=== PATIENT | male | born 1935 | race Caucasian/White ===

== ENCOUNTER 2019-04-01 01:08 | Inpatient (IN) | payer OTHER ==
--- NOTE | 2019-04-01 01:53 | PDOC ---
Attending Attestation - Resident Resident Name: Shan Carson - ED Attending Attestation I have performed the following: I have examined & evaluated the patient, The case was reviewed & discussed with the resident, I agree w/resident's findings & plan - HPI HPI: 04/01/19 01:51 Pt comes with SOB and pitting edema of his legs. HE is having SOB and is also nervous that he may have novel floyd virus. However no fever and no chills or flu like sx. Pt appears well. He is blind, but he is alert and oriented 04/01/19 02:13 - Physicial Exam PE: 04/01/19 01:52 Pt is afebrile VSS HEENT normal Pt has blindness of eyes. Heart RRR Lungs CTAb Abd soft NT ND +BS ext 2+ pitting edema of the lower legs. - Medical Decision Making 04/01/19 02:14 Pt will be admitted for CHF exacerbation 04/01/19 03:05 WBC is normal; CBC normal chem cardiac panel are all hemolyzed; so we repeated. 04/01/19 03:42 troponin + pt will be treated with ASA Heart Score/ECG Review - ECG Intrepretation Rhythm: Regular Rhythm - [place]: Normal - P and MO Prominent R with upright T in V1 (true posterior ND): No Delta Wave(s) Present: No WPW: No - QRS Poor R Wave Progression: No Q Wave Present: No - ST and T Early Repolarization: No Non Specific ST-T Wave changes: No Flattened T Waves: No Prolonged Q-T Interval: No - ECG Impressions Normal ECG: Yes Non-specific ST Elevation: No Ischemic Changes: No Bradycardia: No Tachycardia: Sinus Torsades stoney Pointes: No WPW: No
--- NOTE | 2019-04-01 02:06 | PDOC ---
History of Present Illness - General Chief Complaint: Shortness of Breath Stated Complaint: SHORTNESS OF BREATH,ANKLE SWELLING Time Seen by Provider: 04/01/19 01:20 History Source: Patient - History of Present Illness Initial Comments: 83M PMH legally blind, HTN, CAD s/p 2 stents, CHF BIBEMS for a week of bland taste when eating and concern regarding Covid-19. Denies f/c, cough, cp/sob, n/ v. Good appetite except bland taste when he eats. Examiner noticed edema of the legs - pt states he has had for 3 days. Pt was admitted at [facility] and discharged w/ Torsemide but has not been taking. Past History - Past Medical History Allergies/Adverse Reactions: Allergies Allergy/AdvReac Type Severity Reaction Status Date / Time No Known Allergies Allergy Verified 04/01/19 01:23 Home Medications: Ambulatory Orders Aspirin [ASA -] 81 mg PO DAILY #30 tab.chew 04/08/19 Carvedilol [Coreg -] 3.125 mg PO BID #60 tablet 04/08/19 Furosemide [Lasix -] 40 mg PO DAILY #30 tablet 04/08/19 Lisinopril [Zestril] 2.5 mg PO DAILY #30 tablet 04/08/19 Spironolactone [Aldactone -] 25 mg PO DAILY #30 tablet 04/08/19 - Psycho Social/Smoking Cessation Hx Smoking History: Unknown if ever smoked Hx Alcohol Use: No Drug/Substance Use Hx: No Review of Systems - Review of Systems Comments:: CONSTITUTIONAL: Denies F / C HEENT: Denies sore throat, rhinorrhea RESP: Denies SOB, cough CARD: Denies chest pain, palpitations GI: Denies N / V / D, abdominal pain, bloody stool, inability to tolerate PO : Denies dysuria SKIN: Denies rashes *Physical Exam - Vital Signs Last Vital Signs Temp Pulse Resp BP Pulse Ox 97.6 F 102 H 18 121/68 100 04/01/19 01:21 04/01/19 01:21 04/01/19 01:21 04/01/19 01:21 04/01/19 01:21 - Physical Exam GEN: Well appearing, NAD, comfortable HEENT: NC/AT. No facial asymmetry. Normal voice. Supple neck w/ FROM. CV: S1/S2, RRR, no m/r/g LUNG: CTAB, no wheezes, crackles, rales, rhonchi. GI: mild suprapubic ttp o/w soft, ndnt, +BS, no guarding, no rebound. MSK: 3+ pitting LE edema b/l. No obvious deformities of all extremities. SKIN: Warm, dry, no rashes appreciated. PSYCH: Normal mood and affect. NEURO: Moving all extremities ED Treatment Course - LABORATORY CBC & Chemistry Diagram: 04/05/19 06:02 04/07/19 05:28 - RADIOLOGY Radiology Studies Ordered: Category Date Time Status CHEST X-RAY PORTABLE* [RAD] Stat Radiology 04/01/19 01:40 Ordered Medical Decision Making - Medical Decision Making 04/01/19 01:53 83M BIBEMS w/ 3+ b/l pitting edema w/o SOB or crackles. DDX - CHF exacerbation; eval for ACS - CBC, CMP, Cardiac, BNP - CXR - EKG 04/01/19 02:17 notified by lab that JTs hemolyzed, reordering chems 04/01/19 04:17 labs reviewed, no baseline to compare to - slightly elevated trop; may or may not be baseline given CAD and stenting hx - elevated BNP 16698 - BUN/Cr elevated - monitor technician - admit Discharge - Discharge Information Problems reviewed: Yes Clinical Impression/Diagnosis: CHF (congestive heart failure) Qualifiers: Heart failure type: unspecified Heart failure chronicity: unspecified Qualified Code(s): I50.9 - Heart failure, unspecified Condition: Stable - Follow up/Referral - Patient Discharge Instructions - Post Discharge Activity
[2019-04-01 02:17] LABS: BASO % 0.5 % (0-2.0); EOS % 0.1 % (0-4.5); HEMATOCRIT 43.7 % (35.4-49); HEMOGLOBIN 14.2 GM/dL (11.7-16.9); LYMPH % 10.5 % (8-40); MCH 27.5 pg (25.7-33.7); MCHC 32.4 g/dl (32.0-35.9); MEAN CELL VOLUME 84.9 fl (80-96); MEAN PLT VOLUME 9.9 fl (7.5-11.1); NEUT % 80.9 % (42.8-82.8); PLATELET COUNT 156 K/MM3 (134-434); RBC 5.14 M/mm3 (4.00-5.60); RDW 15.3 % (11.9-15.9)
[2019-04-01 03:31] LABS: ALBUMIN 3.4 g/dl (3.4-5.0); BILIRUBIN,TOTAL 1.2 mg/dL (0.2-1); BLOOD UREA NITROGEN 36.3 mg/dL (7-18); TOT PROT 6.2 g/dl (6.4-8.2)
[2019-04-01] MEDS ORDERED: ASPIRIN 81 MG CHEWABLE TABLETS PO ONE (03:41)
[2019-04-01] MEDS ORDERED: ASPIRIN 81 MG CHEWABLE TABLETS ONE (03:47)
[2019-04-01] MEDS ORDERED: FUROSEMIDE 40 MG/4 ML INJECTABLE VIAL IVPUSH ONE ×3 (04:14→06:04)
--- NOTE | 2019-04-01 05:05 | HP ---
<Veronica Galeana - Last Filed: 04/01/19 06:17> CHIEF COMPLAINT: shorness of breath, lower extremity edema PCP: at [facility] HISTORY OF PRESENT ILLNESS: 83 y.o. M poor historian PMH HTN, CAD s/p 2x stent placements, CHF, legal blindness presenting for LE edema & SOB. This began 3 days ago when he noticed he was becoming short of breath w/ exertion, now progressing to SOB at rest. He endorses orthopnea using 3-4 pillows to sleep at night. Denies paroxysmal nocturnal dyspnea, denies cough, no recent URI symptoms. Ambulates with cane but not well as he is unable to see. He is unaware of most of his medical history as his takes care of his medical concerns, but usually follows up with [facility] [place]. is unreachable by phone at this time. ROS: + SOB, LE edema denies LICONA/ CP/ cough/ fevers/ chills/ abd pain/ myalgias/ parasthesias/ urinary or bowel changes ER course was notable for: (1) trop 0.09 (2) EKG sub optimal quality (3) BNP 33,000's (4) 10mg IV Lasix Recent Travel: denies PAST MEDICAL HISTORY: as per hpi PAST SURGICAL HISTORY: CABG Social History: lives w/ Smoking: denies Alcohol:denies Drugs: denies Allergies No Known Allergies Allergy (Verified 04/01/19 01:23) HOME MEDICATIONS: PHYSICAL EXAMINATION Vital Signs - 24 hr 04/01/19 04/01/19 01:21 03:52 Temperature 97.6 F Pulse Rate 102 H 86 Respiratory 18 Rate Blood Pressure 121/68 O2 Sat by Pulse 100 98 Oximetry (%) GENERAL: Awake, alert, and fully oriented, in no acute distress. HEENT: NCAT. B/l eye blindness. MMM. No JVD. LUNGS: Decr breath sounds at b/l bases R>L. No wheezes, and no crackles. No accessory muscle use. HEART: Tachycardic, normal S1 and S2 without murmur, rub or gallop. Midline chest scar noted from prior surgery. ABDOMEN: Tender to palpation RUW & epigastric region. Soft, not distended, normoactive bowel sounds, no guarding. MUSCULOSKELETAL: Normal range of motion at all joints. No bony deformities or tenderness. No CVA tenderness. EXTREMITIES: 2+ pulses, warm, well-perfused. No peripheral edema. PSYCHIATRIC: Appropriate mood and affect. SKIN: Warm, dry, normal turgor Laboratory Results - last 24 hr 04/01/19 04/01/19 04/01/19 01:58 01:58 01:58 WBC 8.0 RBC 5.14 Hgb 14.2 Hct 43.7 MCV 84.9 MCH 27.5 MCHC 32.4 RDW 15.3 Plt Count 156 MPV 9.9 Absolute Neuts (auto) 6.5 Neutrophils % 80.9 Lymphocytes % 10.5 Monocytes % 8.0 Eosinophils % 0.1 Basophils % 0.5 Nucleated RBC % 0 Sodium Cancelled Potassium Cancelled Chloride Cancelled Carbon Dioxide Cancelled Anion Gap Cancelled BUN Cancelled Creatinine Cancelled Est GFR (CKD-EPI)AfAm Cancelled Est GFR (CKD-EPI)NonAf Cancelled Random Glucose Cancelled Calcium Cancelled Total Bilirubin Cancelled AST Cancelled ALT Cancelled Alkaline Phosphatase Cancelled Creatine Kinase Cancelled Creatine Kinase Index CK-MB (CK-2) Troponin I Cancelled B-Natriuretic Peptide Cancelled Total Protein Cancelled Albumin Cancelled 04/01/19 04/01/19 02:30 02:30 WBC RBC Hgb Hct MCV MCH MCHC RDW Plt Count MPV Absolute Neuts (auto) Neutrophils % Lymphocytes % Monocytes % Eosinophils % Basophils % Nucleated RBC % Sodium 140 Potassium 5.0 Chloride 104 Carbon Dioxide 25 Anion Gap 10 BUN 36.3 H Creatinine 2.0 H Est GFR (CKD-EPI)AfAm 34.25 Est GFR (CKD-EPI)NonAf 29.56 Random Glucose 104 Calcium 9.0 Total Bilirubin 1.2 H AST 55 H ALT 47 Alkaline Phosphatase 130 H Creatine Kinase 241 Creatine Kinase Index 2.5 CK-MB (CK-2) 6.1 H Troponin I 0.09 H B-Natriuretic Peptide 46108.3 H Total Protein 6.2 L Albumin 3.4 ASSESSMENT/PLAN: 83 y.o. M poor historian PMH HTN, CAD s/p 2x stent placements, CHF, legal blindness presenting for acute CHF exacerbation. #Acute CHF exacerbation -Repeat EKG as 1st was suboptimal in quality -+ trop 0.09, trend -f/u echo -daily weights, strict Is & Os -giving 80mg IV pish lasix; s/p 10mg IV push in ED -starting 40mg IV lasix BID -monitor on tele -cardio consulted #ENRIQUE vs CKD -f/u prior labs from [facility] -BUN/ Cr 36.3/2 -f/u AM labs -renal U/S -UA, urine lytes #HTN -unsure of home meds unable to contact , patient is unsure of his pharmacy -ASA 81mg daily -starting low dose beta carmen for now, 12.5mg lopressor -monitor vitals closely -med rec #Elevated bili -endorses abd pain on palpation -f/u direct bili -f/u RUQ U/S #DVT PPX -heparin SQ TID #FEN -no standing fluids -trend lytes replete prn -sodium controlled diet #Dispo -telemetry is Jessika-- patient is unsure of her # but remembered these 2 #'s: / [phone]. Called both multiple attempts with no response. ATTENDING PHYSICIAN STATEMENT I saw and evaluated the patient. I reviewed the resident's note and discussed the case with the resident. I agree with the resident's findings and plan as documented. SUBJECTIVE: OBJECTIVE: ASSESSMENT AND PLAN: <Armando Devries - Last Filed: 04/01/19 06:49> CHIEF COMPLAINT: PCP: HISTORY OF PRESENT ILLNESS: ER course was notable for: (1) (2) (3) Recent Travel: PAST MEDICAL HISTORY: PAST SURGICAL HISTORY: Social History: Smoking: Alcohol: Drugs: Allergies No Known Allergies Allergy (Verified 04/01/19 01:23) HOME MEDICATIONS: Home Medications Medication Instructions Recorded Unobtainable 04/01/19 REVIEW OF SYSTEMS CONSTITUTIONAL: Absent: fever, chills, diaphoresis, generalized weakness, malaise, loss of appetite, weight change HEENT: Absent: rhinorrhea, nasal congestion, throat pain, throat swelling, difficulty swallowing, mouth swelling, ear pain, eye pain, visual changes CARDIOVASCULAR: Absent: chest pain, syncope, palpitations, irregular heart rate, lightheadedness , peripheral edema RESPIRATORY: Absent: cough, shortness of breath, dyspnea with exertion, orthopnea, wheezing, stridor, hemoptysis GASTROINTESTINAL: Absent: abdominal pain, abdominal distension, nausea, vomiting, diarrhea, constipation, melena, hematochezia GENITOURINARY: Absent: dysuria, frequency, urgency, hesitancy, hematuria, flank pain, genital pain MUSCULOSKELETAL: Absent: myalgia, arthralgia, joint swelling, back pain, neck pain SKIN: Absent: rash, itching, pallor HEMATOLOGIC/IMMUNOLOGIC: Absent: easy bleeding, easy bruising, lymphadenopathy, frequent infections ENDOCRINE: Absent: unexplained weight gain, unexplained weight loss, heat intolerance, cold intolerance NEUROLOGIC: Absent: headache, focal weakness or paresthesias, dizziness, unsteady gait, seizure, mental status changes, bladder or bowel incontinence PSYCHIATRIC: Absent: anxiety, depression, suicidal or homicidal ideation, hallucinations. PHYSICAL EXAMINATION Vital Signs - 24 hr 04/01/19 04/01/19 04/01/19 01:21 03:52 05:28 Temperature 97.6 F Pulse Rate 102 H 86 Pulse Rate [ 98 H Left] Respiratory 18 16 Rate Blood Pressure 121/68 Blood Pressure 140/94 [Left Arm] O2 Sat by Pulse 100 98 100 Oximetry (%) GENERAL: Awake, alert, and fully oriented, in no acute distress. HEAD: Normal with no signs of trauma. EYES: Pupils equal, round and reactive to light, extraocular movements intact, sclera anicteric, conjunctiva clear. No lid lag. EARS, NOSE, THROAT: Ears normal, nares patent, oropharynx clear without exudates. Moist mucous membranes. NECK: Normal range of motion, supple without lymphadenopathy, JVD, or masses. LUNGS: Breath sounds equal, clear to auscultation bilaterally. No wheezes, and no crackles. No accessory muscle use. HEART: Regular rate and rhythm, normal S1 and S2 without murmur, rub or gallop. ABDOMEN: Soft, nontender, not distended, normoactive bowel sounds, no guarding, no rebound, no masses. No hepatomegaly or splenomegaly. MUSCULOSKELETAL: Normal range of motion at all joints. No bony deformities or tenderness. No CVA tenderness. UPPER EXTREMITIES: 2+ pulses, warm, well-perfused. No cyanosis. No clubbing. No peripheral edema. LOWER EXTREMITIES: 2+ pulses, warm, well-perfused. No calf tenderness. No peripheral edema. NEUROLOGICAL: Cranial nerves II-XII intact. Normal speech. Normal gait. PSYCHIATRIC: Cooperative. Good eye contact. Appropriate mood and affect. SKIN: Warm, dry, normal turgor, no rashes or lesions noted, normal capillary refill. Laboratory Results - last 24 hr 04/01/19 04/01/19 04/01/19 01:58 01:58 01:58 WBC 8.0 RBC 5.14 Hgb 14.2 Hct 43.7 MCV 84.9 MCH 27.5 MCHC 32.4 RDW 15.3 Plt Count 156 MPV 9.9 Absolute Neuts (auto) 6.5 Neutrophils % 80.9 Lymphocytes % 10.5 Monocytes % 8.0 Eosinophils % 0.1 Basophils % 0.5 Nucleated RBC % 0 Sodium Cancelled Potassium Cancelled Chloride Cancelled Carbon Dioxide Cancelled Anion Gap Cancelled BUN Cancelled Creatinine Cancelled Est GFR (CKD-EPI)AfAm Cancelled Est GFR (CKD-EPI)NonAf Cancelled Random Glucose Cancelled Calcium Cancelled Total Bilirubin Cancelled AST Cancelled ALT Cancelled Alkaline Phosphatase Cancelled Creatine Kinase Cancelled Creatine Kinase Index CK-MB (CK-2) Troponin I Cancelled B-Natriuretic Peptide Cancelled Total Protein Cancelled Albumin Cancelled 04/01/19 04/01/19 02:30 02:30 WBC RBC Hgb Hct MCV MCH MCHC RDW Plt Count MPV Absolute Neuts (auto) Neutrophils % Lymphocytes % Monocytes % Eosinophils % Basophils % Nucleated RBC % Sodium 140 Potassium 5.0 Chloride 104 Carbon Dioxide 25 Anion Gap 10 BUN 36.3 H Creatinine 2.0 H Est GFR (CKD-EPI)AfAm 34.25 Est GFR (CKD-EPI)NonAf 29.56 Random Glucose 104 Calcium 9.0 Total Bilirubin 1.2 H AST 55 H ALT 47 Alkaline Phosphatase 130 H Creatine Kinase 241 Creatine Kinase Index 2.5 CK-MB (CK-2) 6.1 H Troponin I 0.09 H B-Natriuretic Peptide 19997.3 H Total Protein 6.2 L Albumin 3.4 ASSESSMENT/PLAN: Visit type - Emergency Visit Emergency Visit: Yes ED Registration Date: 04/01/19 Care time: The patient presented to the Emergency Department on the above date and was hospitalized for further evaluation of their emergent condition. - New Patient This patient is new to me today: Yes Date on this admission: 04/01/19 - Critical Care Critical Care patient: No ATTENDING PHYSICIAN STATEMENT I saw and evaluated the patient. I reviewed the resident's note and discussed the case with the resident. I agree with the resident's findings and plan as documented. SUBJECTIVE: 83 years oldf MalePMH HTN, CAD s/p 2x stent placements, CHF, legal blindness presented to ED with worsening of b/ LE swelling and shortness of breath. According to patient hsi symptoms started 3 days ago and progressively getting worse. he is a poor historian and not happy being here as he said he suppose to go to hospital in [facility]. He is agitated and wants to go to other hospital and wants to talk to his . He denies chest pain, nausea ,vomiting,fever,dizziness, LOC. OBJECTIVE: Last Vital Signs Temp Pulse Resp BP Pulse Ox 97.6 F 98 H 16 140/94 100 04/01/19 01:21 04/01/19 05:28 04/01/19 05:28 04/01/19 05:28 04/01/19 05:28 CXR noted for R pleural effusion elevated bun/cr, elevated BNP GENERAL: Normal built, NAD Head : NC/ AT eyes : b/l eye blindness LUNGS:decreased breath sounds Right lower lung HEART:RRR, normal S1 and S2 without murmur, rub or gallop. chest wall scar noted ABDOMEN: Soft, mild tender on RUQ an depihastric region not distended, EXTREMITIES: b/l Lower extremities edema pitting 3+ NEUROLOGICAL: A&o x3, No focal neuralgic deficit SKIN: Warm, dry, normal turgor. Acute CHF exacerbation ( Unknown EF) ENRIQUE vs CKD- unknown baseline ' HTN CAD s/p stents Hx of ?CABG Elevated troponin due to CHF vs ENRIQUE r/o ACS ASSESSMENT AND PLAN: Admit to tele serial cardiac enzymes, EKG fluid restriction, daily weights IV lasix 40mg BID ECHO intake out put Confirm home medications start low dose of betablocker urine lytes, renal and RUQ US due to elevated bili and mild RUQ pain c/w aspirin 81 SVT ppx - heparin sq get cardiac work up records from [facility] Discussed with resident staff in conference.
[2019-04-01] MEDS ORDERED: FUROSEMIDE 40 MG/4 ML INJECTABLE VIAL ONE (05:08)
[2019-04-01] MEDS: HEPARIN NA (PORCINE) 5,000 UNITS/ML 1ML VIAL SQ SCH ×3 (05:20→21:49)
[2019-04-01] MEDS ORDERED: HEPARIN NA (PORCINE) 5,000 UNITS/ML 1ML VIAL ONE (05:23)
[2019-04-01 08:04] LABS: BASO % 0.2 % (0-2.0); EOS % 0.2 % (0-4.5); HEMATOCRIT 42.3 % (35.4-49); HEMOGLOBIN 13.8 GM/dL (11.7-16.9); LYMPH % 15.5 % (8-40); MCH 27.6 pg (25.7-33.7); MCHC 32.6 g/dl (32.0-35.9); MEAN CELL VOLUME 84.8 fl (80-96); MEAN PLT VOLUME 9.5 fl (7.5-11.1); MONO % 7.5 % (3.8-10.2); NEUT % 76.6 % (42.8-82.8); PLATELET COUNT 134 K/MM3 (134-434); RBC 4.99 M/mm3 (4.00-5.60); RDW 15.4 % (11.9-15.9); WHITE BLOOD COUNT 6.7 K/mm3 (4.0-10.0)
[2019-04-01 08:14] LABS: POTASSIUM 4.7 mmol/L (3.5-5.1)
[2019-04-01 08:21] LABS: ALBUMIN 3.4 g/dl (3.4-5.0); BILIRUBIN,DIRECT 0.5 mg/dL (0.0-0.2); BILIRUBIN,TOTAL 1.1 mg/dL (0.2-1); BLOOD UREA NITROGEN 35.7 mg/dL (7-18); CALCIUM 9.5 mg/dL (8.5-10.1); TOT PROT 6.2 g/dl (6.4-8.2)
--- NOTE | 2019-04-01 09:22 | CON.CARD ---
Consult - History of Present Illness Chief Complaint: SOB History of Present Illness: 83YOM , poor historian, with apparent CABG?, PCIs (pt states had "8 of them, last one 8 months ago"), HTN,HLD,CHF?,CKD c/o increasing SOB, Orthopnea, arm and legs pain. 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 States in the past had CPs prior to stents but not having any now; In ER found to be in CHF, Cr 2, K 5, BNP>97243, given IV lasix and today feels much better - History Source History Provided By: Patient, Medical Record - Past Medical History Cardio/Vascular: Yes: CAD, CHF, HTN, Hyperlipdemia Renal/: Yes: Renal Inusuff - Alcohol/Substance Use Hx Alcohol Use: No - Smoking History Smoking history: Unknown if ever smoked Home Medications - Allergies Allergies/Adverse Reactions: Allergies Allergy/AdvReac Type Severity Reaction Status Date / Time No Known Allergies Allergy Verified 04/01/19 01:23 - Home Medications Home Medications: Ambulatory Orders Unobtainable 04/01/19 Review of Systems Findings/Remarks: All other systems reviewed negative, except in HPI; +blindness Vital Signs: Vital Signs Temperature 97.6 F 04/01/19 01:21 Pulse Rate 94 H 04/01/19 07:15 Respiratory Rate 16 04/01/19 07:15 Blood Pressure 137/96 04/01/19 07:15 O2 Sat by Pulse Oximetry (%) 100 04/01/19 07:15 Constitutional: Yes: No Distress, Cachectic Eyes: No: Sclera Icterus Neck: Yes: Other (No JVP on sitting) Respiratory: Yes: Other (No rales, scatter rhonchi, mildly decreased RLL) Gastrointestinal: Yes: Soft Cardiovascular: Yes: Regular Rate and Rhythm, Other (No M/). No: Gallop, Rub JVD: No Carotid Bruit: No Heart Sounds: Yes: S1, S2 Edema: Yes (2+ LE) - Other Data Labs, Other Data: CBC, BMP 04/01/19 07:35 04/01/19 07:35 Troponin, BNP 04/01/19 04/01/19 04/01/19 01:58 01:58 02:30 Troponin I Cancelled 0.09 H B-Natriuretic Peptide Cancelled 04/01/19 04/01/19 02:30 07:35 Troponin I 0.10 H B-Natriuretic Peptide 93273.3 H Troponin, BNP 04/01/19 04/01/19 04/01/19 01:58 01:58 02:30 Troponin I Cancelled 0.09 H B-Natriuretic Peptide Cancelled 04/01/19 04/01/19 02:30 07:35 Troponin I 0.10 H B-Natriuretic Peptide 81633.3 H Imaging - Results Chest X-ray: Report Reviewed Assessment/Plan -CHF exacerbation -CAD, s/p ?CABG, s/p PCI: -HTN -HLD -CKD -Legally blind Plan: -Get full Hx/meds list from family when available -Echo -Trend Troponin -Cot Lasix -Add: Plavix 75 mg/d (unril pt's home meds available, then resume home's antiplatelet if any) -Add atorvastatin 40mg/d
--- NOTE | 2019-04-01 09:48 | EKG ---
Test Reason : Blood Pressure : / mmHG Vent. Rate : 095 BPM Atrial Rate : 095 BPM P-R Int : 184 ms QRS Dur : 122 ms QT Int : 386 ms P-R-T Axes : 079 -35 126 degrees QTc Int : 485 ms NORMAL SINUS RHYTHM POSSIBLE LEFT ATRIAL ENLARGEMENT NON-SPECIFIC INTRA-VENTRICULAR CONDUCTION DELAY LEFTWARD AXIS Consider SEPTAL INFARCT (CITED ON OR BEFORE 01-APR-2019) ABNORMAL ECG WHEN COMPARED WITH ECG OF 01-APR-2019 01:50, NORMAL SINUS RHYTHM 0CC PREMATURE VENTRICULAR COMPLEXES NO SIGNIFICANT CHANGE FROM PREVIOUS EKG Confirmed by Candace Shelby ([id number]) on 04/01/2019 9:48:28 AM Referred By: JYOTI LANDRY Confirmed By:Candace Shelby
--- NOTE | 2019-04-01 09:57 | EKG ---
Test Reason : Blood Pressure : / mmHG Vent. Rate : 103 BPM Atrial Rate : 103 BPM P-R Int : 192 ms QRS Dur : 084 ms QT Int : 370 ms P-R-T Axes : 104 -14 -63 degrees QTc Int : 484 ms POOR DATA QUALITY, INTERPRETATION MAY BE ADVERSELY AFFECTED SINUS TACHYCARDIA ANTEROSEPTAL INFARCT , AGE UNDETERMINED NON-SPECIFIC INTRA-VENTRICULAR CONDUCTION DELAY ABNORMAL ECG WHEN COMPARED WITH ECG OF 09-JAN-2005 08:19, VENT. RATE HAS INCREASED BY 38 BPM QUESTIONABLE CHANGE IN QRS DURATION ANTEROSEPTAL INFARCT IS NOW PRESENT Confirmed by Candace Shelby ([id number]) on 04/01/2019 9:56:52 AM Referred By: Confirmed By:Candace Shelby
[2019-04-01] MEDS ORDERED: CLOPIDOGREL BISULFATE 75 MG TABLET (FP) ONE (10:57)
[2019-04-01] MEDS: CLOPIDOGREL BISULFATE 75 MG TABLET (FP) PO SCH (11:06)
[2019-04-01] MEDS: metoPROLOL SUCCINATE 25 MG TAB.SR.24H (FP) PO SCH (11:06)
[2019-04-01] MEDS: ASPIRIN 81 MG CHEWABLE TABLETS PO SCH (11:07)
[2019-04-01] MEDS: FUROSEMIDE 40 MG/4 ML INJECTABLE VIAL IVPUSH SCH (13:29)
--- NOTE | 2019-04-01 14:16 | PN ---
Physical Exam: SUBJECTIVE: Patient seen and examined. He has no complaints. He says he feels fatigued and SOB when ambulating. OBJECTIVE: Vital Signs Period Temp Pulse Resp BP Sys/Barber Pulse Ox Last 24 Hr 97.6 F-97.9 F 86-102 16-22 121-140/68-96 98-100 GENERAL: The patient is awake, alert, and fully oriented, in no acute distress. LUNGS: Breath sounds equal, clear to auscultation bilaterally, no wheezes, no crackles, no accessory muscle use. HEART: Regular rate and rhythm, S1, S2 without murmur, rub or gallop. ABDOMEN: Soft, nontender, nondistended, normoactive bowel sounds, no guarding, no rebound, no hepatosplenomegaly, no masses. EXTREMITIES: 2+ pulses, warm, well-perfused, 3+ edema. Laboratory Results - last 24 hr 04/01/19 04/01/19 04/01/19 01:58 01:58 01:58 WBC 8.0 RBC 5.14 Hgb 14.2 Hct 43.7 MCV 84.9 MCH 27.5 MCHC 32.4 RDW 15.3 Plt Count 156 MPV 9.9 Absolute Neuts (auto) 6.5 Neutrophils % 80.9 Lymphocytes % 10.5 Monocytes % 8.0 Eosinophils % 0.1 Basophils % 0.5 Nucleated RBC % 0 Sodium Cancelled Potassium Cancelled Chloride Cancelled Carbon Dioxide Cancelled Anion Gap Cancelled BUN Cancelled Creatinine Cancelled Est GFR (CKD-EPI)AfAm Cancelled Est GFR (CKD-EPI)NonAf Cancelled Random Glucose Cancelled Calcium Cancelled Total Bilirubin Cancelled Direct Bilirubin AST Cancelled ALT Cancelled Alkaline Phosphatase Cancelled Creatine Kinase Cancelled Creatine Kinase Index CK-MB (CK-2) Troponin I Cancelled B-Natriuretic Peptide Cancelled Total Protein Cancelled Albumin Cancelled Triglycerides Cholesterol Total LDL Cholesterol HDL Cholesterol 04/01/19 04/01/19 04/01/19 02:30 02:30 07:35 WBC 6.7 RBC 4.99 Hgb 13.8 Hct 42.3 MCV 84.8 MCH 27.6 MCHC 32.6 RDW 15.4 Plt Count 134 MPV 9.5 Absolute Neuts (auto) 5.2 Neutrophils % 76.6 Lymphocytes % 15.5 D Monocytes % 7.5 Eosinophils % 0.2 D Basophils % 0.2 Nucleated RBC % 0 Sodium 140 Potassium 5.0 Chloride 104 Carbon Dioxide 25 Anion Gap 10 BUN 36.3 H Creatinine 2.0 H Est GFR (CKD-EPI)AfAm 34.25 Est GFR (CKD-EPI)NonAf 29.56 Random Glucose 104 Calcium 9.0 Total Bilirubin 1.2 H Direct Bilirubin AST 55 H ALT 47 Alkaline Phosphatase 130 H Creatine Kinase 241 Creatine Kinase Index 2.5 CK-MB (CK-2) 6.1 H Troponin I 0.09 H B-Natriuretic Peptide 65578.3 H Total Protein 6.2 L Albumin 3.4 Triglycerides Cholesterol Total LDL Cholesterol HDL Cholesterol 04/01/19 04/01/19 07:35 07:35 WBC RBC Hgb Hct MCV MCH MCHC RDW Plt Count MPV Absolute Neuts (auto) Neutrophils % Lymphocytes % Monocytes % Eosinophils % Basophils % Nucleated RBC % Sodium 137 139 Potassium 5.0 4.7 Chloride 103 102 Carbon Dioxide 28 27 Anion Gap 6 L 10 BUN 35.7 H Creatinine 2.0 H Est GFR (CKD-EPI)AfAm 34.25 Est GFR (CKD-EPI)NonAf 29.56 Random Glucose 95 Calcium 9.5 Total Bilirubin 1.1 H Direct Bilirubin 0.5 H AST 53 H ALT 46 Alkaline Phosphatase 129 H Creatine Kinase Creatine Kinase Index CK-MB (CK-2) Troponin I 0.10 H B-Natriuretic Peptide Total Protein 6.2 L Albumin 3.4 Triglycerides 84 Cholesterol 185 Total LDL Cholesterol 111 H HDL Cholesterol 53 Active Medications Generic Name Dose Route Start Last Admin Trade Name Freq PRN Reason Stop Dose Admin Aspirin 81 mg 04/01/19 10:00 04/01/19 11:07 Asa - PO 81 mg DAILY JANETTE Administration Atorvastatin Calcium 40 mg 04/01/19 22:00 Lipitor - PO HS JANETTE Clopidogrel Bisulfate 75 mg 04/01/19 10:00 04/01/19 11:06 Plavix - PO 75 mg DAILY JANETTE Administration Furosemide 40 mg 04/01/19 14:00 04/01/19 13:29 Lasix Injection - IVPUSH 40 mg BIDLASIX JANETTE Administration Heparin Sodium (Porcine) 5,000 unit 04/01/19 06:00 04/01/19 13:28 Heparin - SQ 5,000 unit TID JANETTE Administration Metoprolol Succinate 12.5 mg 04/01/19 10:00 04/01/19 11:06 Toprol Xl - PO 12.5 mg DAILY JANETTE Administration ASSESSMENT/PLAN: This is an 83 year old man with a history of HTN, CAD with stents, CHF, legal blindness who presented to the ED with leg swelling and SOB. 1. Acute on chronic heart failure - Unclear if diastolic or systolic - Continue Lasix IV - Daily weight, I&O - Echocardiogram 2. Demand ischemia 3. 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 HTN - Continue Toprol XL, Lasix 5. CAD, history of stents - Continue aspirin, Plavix, Toprol XL, Lipitor 6. Elevated AST, direct bili, alk phos - Cholelithiasis, mild diffuse gallbladder wall thickening seen on US - Consider HIDA scan Visit type - Emergency Visit Emergency Visit: Yes ED Registration Date: 04/01/19 Care time: The patient presented to the Emergency Department on the above date and was hospitalized for further evaluation of their emergent condition. - New Patient This patient is new to me today: Yes Date on this admission: 04/01/19 - Critical Care Critical Care patient: No - Discharge Referral Referred to [facility] Med P.C.: No
[2019-04-01] MEDS: ATORVASTATIN CA 40 MG TABLET (FP) PO SCH (21:49)
[2019-04-02] MEDS: HEPARIN NA (PORCINE) 5,000 UNITS/ML 1ML VIAL SQ SCH ×4 (05:49→23:14)
[2019-04-02] MEDS: FUROSEMIDE 40 MG/4 ML INJECTABLE VIAL IVPUSH SCH ×2 (05:50→15:23)
[2019-04-02 07:14] LABS: BLOOD UREA NITROGEN 37.6 mg/dL (7-18); CALCIUM 8.4 mg/dL (8.5-10.1); MAGNESIUM 2.1 mg/dL (1.8-2.4); POTASSIUM 3.5 mmol/L (3.5-5.1)
[2019-04-02] MEDS: CLOPIDOGREL BISULFATE 75 MG TABLET (FP) PO SCH (10:47)
[2019-04-02] MEDS: ASPIRIN 81 MG CHEWABLE TABLETS PO SCH (10:47)
[2019-04-02] MEDS: metoPROLOL SUCCINATE 25 MG TAB.SR.24H (FP) PO SCH (10:47)
--- NOTE | 2019-04-02 11:53 | ECHO ---
Name: RADHA DURAN Exam:Adult Echocardiogram Study Date: 04/02/2019 10:02 AM Age: 83 yrs Reason For Study: chf Height: 65 in Weight: 140 lb BSA: 1.7 m2 MMode/2D Measurements & Calculations IVSd: 1.0 cm Ao root diam: 3.5 cm LVIDd: 6.9 cm LA dimension: 4.4 cm LVIDs: 6.0 cm ACS: 1.7 cm LVPWd: 0.78 cm LVPWs: 0.70 cm EDV(Teich): 250.0 ml ESV(Teich): 182.5 ml Doppler Measurements & Calculations MV E max aga: 88.1 cm/sec Ao V2 max: 104.2 cm/sec MV A max aga: 24.2 cm/sec Ao max P.3 mmHg MV E/A: 3.6 Ao V2 mean: 79.9 cm/sec Ao mean P.8 mmHg Ao V2 VTI: 16.9 cm AI P1/2t: 442.2 msec AI max aga: 306.2 cm/sec MR max aga: 289.3 cm/sec AI max P.5 mmHg MR max P.6 mmHg AI dec slope: 202.8 cm/sec2 TR max aga: 283.0 cm/sec PI end-d aga: 104.5 cm/sec TR max P.1 mmHg Med Peak E' Aga: 3.0 cm/sec Med E/e': 29.8 Lat Peak E' Aga: 3.6 cm/sec Lat E/e': 24.3 Procedure A complete two-dimensional transthoracic echocardiogram was performed (2D, M-mode, Doppler and color flow Doppler). Left Ventricle The left ventricle is severely dilated. Left ventricular systolic function is severely reduced. Eject ion Fraction = 25%. The transmitral spectral Doppler flow pattern is suggestive of impaired LV relaxation . There is severe global hypokinesis of the left ventricle. Right Ventricle The right ventricle is mildly dilated. The right ventricular systolic function is mildly reduced. Atria The left atrium is mildly dilated. The right atrium is mildly dilated. Mitral Valve There is moderate mitral annular calcification. There is moderate mitral valve thickening. There is m ild to moderate mitral regurgitation. Tricuspid Valve The tricuspid valve is normal in structure and function. There is mild tricuspid regurgitation. Right ventricular systolic pressure is elevated at 42 mmhg. Assuming the RA pressure is 10 mmHg. Aortic Valve There is moderate to severe aortic valve thickening. No hemodynamically significant valvular aortic s tenosis. Great Vessels The aortic root is normal size. Pericardium/Pleura There is no pericardial effusion. There is no pleural effusion. Interpretation Summary The left ventricle is severely dilated. There is severe global hypokinesis of the left ventricle. Left ventricular systolic function is severely reduced. Ejection Fraction = 25%. The right ventricle is mildly dilated. The right ventricular systolic function is mildly reduced. The left atrium is mildly dilated. The right atrium is mildly dilated. There is moderate mitral annular calcification. There is moderate mitral valve thickening. There is mild to moderate mitral regurgitation. There is mild tricuspid regurgitation. Right ventricular systolic pressure is elevated at 42 mmhg. Assuming the RA pressure is 10 mmHg There is moderate to severe aortic valve thickening. MD Carlton Mchugh 04/02/2019 11:53 AM
--- NOTE | 2019-04-02 13:31 | PN ---
Physical Exam: SUBJECTIVE: Patient seen and examined at the bedside. Patient states that he feels well but is nervous that he forgot his 's phone number. Stated that he has some dyspnea on exertion. Endorsed good appetite. Otherwise did not have acute complaints of cp, abd pain, n/v/c/d, fever, chills, weakness, dizziness, lightheadedness, headaches, numbness/tingling. OBJECTIVE: Vital Signs Period Temp Pulse Resp BP Sys/Barber Pulse Ox Last 24 Hr 97.5 F-98.7 F 84-96 18-22 92-136/62-91 94-100 GENERAL: The patient is awake, alert, and fully oriented, in no acute distress. EYES: Very poorly reactive pupils. White-out of lenses. ENT: Oropharynx clear without exudates, moist mucous membranes. LUNGS: Breath sounds equal, mild bibasilar crackles heard. No wheezes auscultated. HEART: Regular rate and rhythm, S1, S2 without murmur, rub. ABDOMEN: Soft, nontender, nondistended, normoactive bowel sounds, no guarding, no rebound, no masses. Liz's negative. EXTREMITIES: 1+ pulses, warm, well-perfused, 3+ pitting edema up to the knees. PSYCH: Normal mood, normal affect. SKIN: Warm, dry, normal turgor. Laboratory Results - last 24 hr 04/02/19 04/02/19 04/02/19 05:27 05:30 05:30 Sodium 137 Potassium 3.5 Chloride 100 Carbon Dioxide 28 Anion Gap 9 BUN 37.6 H Creatinine 2.0 H Est GFR (CKD-EPI)AfAm 34.25 Est GFR (CKD-EPI)NonAf 29.56 Random Glucose 84 Calcium 8.4 L Magnesium 2.1 Ur Random Creatinine 38.0 Ur Random Sodium 96 Ur Random Potassium 35.0 Ur Random Chloride 128 Active Medications Generic Name Dose Route Start Last Admin Trade Name Freq PRN Reason Stop Dose Admin Aspirin 81 mg 04/01/19 10:00 04/02/19 10:47 Asa - PO 81 mg DAILY JANETTE Administration Atorvastatin Calcium 40 mg 04/01/19 22:00 04/01/19 21:49 Lipitor - PO 40 mg HS JANETTE Administration Clopidogrel Bisulfate 75 mg 04/01/19 10:00 04/02/19 10:47 Plavix - PO 75 mg DAILY JANETTE Administration Furosemide 40 mg 04/01/19 14:00 04/02/19 05:50 Lasix Injection - IVPUSH 40 mg BIDLASIX JANETTE Administration Heparin Sodium (Porcine) 5,000 unit 04/01/19 06:00 04/02/19 06:16 Heparin - SQ 5,000 unit TID JANETTE Administration Metoprolol Succinate 12.5 mg 04/01/19 10:00 04/02/19 10:47 Toprol Xl - PO 12.5 mg DAILY JANETTE Administration ECHO: The left ventricle is severely dilated. There is severe global hypokinesis of the left ventricle. Left ventricular systolic function is severely reduced. Ejection Fraction = 25%. The right ventricle is mildly dilated. The right ventricular systolic function is mildly reduced. The left atrium is mildly dilated. The right atrium is mildly dilated. There is moderate mitral annular calcification. There is moderate mitral valve thickening. There is mild to moderate mitral regurgitation. There is mild tricuspid regurgitation. Right ventricular systolic pressure is elevated at 42 mmhg. Assuming the RA pressure is 10 mmHg There is moderate to severe aortic valve thickening. ASSESSMENT/PLAN: Dallas Toscano is a 83 year old male with a past medical history of PMH HTN, CAD s /p 2x stent placements, CHF, legal blindness admitted for acute CHF decompensation. Acute CHF decompensation - echo as above - daily weights, strict Is & Os - weights noting decrease of weight in 1 day - Lasix 40mg IV BID - cardiac monitoring - cardio consulted, recs appreciated, adding Plavix and atorvastatin, trend troponin ENRIQUE vs CKD - improving - attempting to obtain records from previous institution - renal U/S with no noted hydronephrosis. Noted multiple bilateral cortical cysts, will need outpatient f/u - obtain Urine CRE and urea as patient on Lasix HTN - unsure of home meds unable to contact , patient is unsure of his pharmacy - ASA 81mg daily - starting low dose beta carmen for now, 12.5mg lopressor Elevated bili - does not have abd pain - direct bili, elevated - RUQ U/S noting cholelithiasis, gallbladder wall thickening and pericholecystic fluid - HIDA to assess for gallbladder pathology, patient is currently asymptomatic DVT PPX - heparin 5000 units subq tid FEN - no standing fluids - continue to monitor electrolytes and replete as necessary - sodium controlled diet, NPO after midnight for HIDA Dispo - continue to monitor on telemetry Visit type - Emergency Visit Emergency Visit: Yes ED Registration Date: 04/01/19 Care time: The patient presented to the Emergency Department on the above date and was hospitalized for further evaluation of their emergent condition. - New Patient This patient is new to me today: Yes Date on this admission: 04/02/19 - Critical Care Critical Care patient: No
--- NOTE | 2019-04-02 15:46 | PN ---
Teaching Attending Note Name of Resident: Gabino Hernandez ATTENDING PHYSICIAN STATEMENT I saw and evaluated the patient. I reviewed the resident's note and discussed the case with the resident. I agree with the resident's findings and plan as documented. SUBJECTIVE: Patient feels SOB with exertion. OBJECTIVE: Vital Signs Period Temp Pulse Resp BP Sys/Barber Pulse Ox Last 24 Hr 97.5 F-98.7 F 84-96 18-21 92-136/62-91 94-100 GENERAL: The patient is awake, alert, and fully oriented, in no acute distress. LUNGS: Breath sounds equal, clear to auscultation bilaterally, no wheezes, no crackles, no accessory muscle use. HEART: Regular rate and rhythm, S1, S2 without murmur, rub or gallop. ABDOMEN: Soft, nontender, nondistended, normoactive bowel sounds, no guarding, no rebound, no hepatosplenomegaly, no masses. EXTREMITIES: 2+ pulses, warm, well-perfused, 3+ edema. Laboratory Results - last 24 hr 04/02/19 04/02/19 04/02/19 05:27 05:30 05:30 Sodium 137 Potassium 3.5 Chloride 100 Carbon Dioxide 28 Anion Gap 9 BUN 37.6 H Creatinine 2.0 H Est GFR (CKD-EPI)AfAm 34.25 Est GFR (CKD-EPI)NonAf 29.56 Random Glucose 84 Calcium 8.4 L Magnesium 2.1 Ur Random Creatinine 38.0 Ur Random Sodium 96 Ur Random Potassium 35.0 Ur Random Chloride 128 Current Medications Generic Name Dose Route Start Last Admin Trade Name Freq PRN Reason Stop Dose Admin Aspirin 81 mg 04/01/19 10:00 04/02/19 10:47 Asa - PO 81 mg DAILY JANETTE Administration Atorvastatin Calcium 40 mg 04/01/19 22:00 04/01/19 21:49 Lipitor - PO 40 mg HS JANETTE Administration Clopidogrel Bisulfate 75 mg 04/01/19 10:00 04/02/19 10:47 Plavix - PO 75 mg DAILY JANETTE Administration Furosemide 40 mg 04/01/19 14:00 04/02/19 15:23 Lasix Injection - IVPUSH 40 mg BIDLASIX JANETTE Administration Heparin Sodium (Porcine) 5,000 unit 04/01/19 06:00 04/02/19 15:23 Heparin - SQ 5,000 unit TID JANETTE Administration Metoprolol Succinate 12.5 mg 04/01/19 10:00 04/02/19 10:47 Toprol Xl - PO 12.5 mg DAILY JANETTE Administration ASSESSMENT AND PLAN: This is an 83 year old man with a history of HTN, CAD with stents, CHF, legal blindness who presented to the ED with leg swelling and SOB. 1. Acute on chronic systolic heart failure - Continue Lasix IV - Monitor weight, I&O - Echocardiogram shows severely dilated LV, severe global hypokinesis of LV, LVEF 25%, mildly dilated RV, mildly reduced RV systolic function, mildly dilated LA, mildly dilated RA, mild to moderate MR, mild TR, RVSP 42 mmHg - Cardiology follow-up 2. Demand ischemia 3. Probable cardiorenal syndrome, stage 4 CKD - Creatinine stable - Renal US shows right pleural effusion, possible left pleural effusion, ascites in upper abdomen, cholelithiasis, mild diffuse gallbladder wall thickening, multiple bilateral renal cortical cysts 4. HTN - Continue Toprol XL, Lasix 5. CAD, history of stents - Continue aspirin, Plavix, Toprol XL, Lipitor 6. Elevated AST, direct bili, alk phos - Cholelithiasis, mild diffuse gallbladder wall thickening seen on US - HIDA scan
--- NOTE | 2019-04-02 16:58 | CON.CARD ---
Consult Consult Specialty:: cardiology Reason for Consultation:: SOB; hx severe systolic CHF - History of Present Illness Chief Complaint: Pt alert; no chest pain; improved breathing (not SOB now; able to converse in full sentences without dyspnea). Worried about whether his knows he is in this hospital. History of Present Illness: 83 yr old man (kari Rodriguez; raised in [place]), with PMH legally blind, HTN, CABG, CAD s/p 2 stents (all cardiac work done at [address], per pt), systolic (severely reduced LVEF) CHF, BIBEMS for a week of bland taste when eating and concern regarding Covid-19. Denies f/c, cough, cp/sob, n/ v. Good appetite except bland taste when he eats. Examiner noticed edema of the legs - pt states he has had for 3 days. Pt was admitted at [facility] and discharged w/ Torsemide but has not been taking. Denies hx smoking or heavy drinking. No hx asthma. - History Source History Provided By: Patient, Medical Record Limitations to Obtaining History: Poor Historian - Past Medical History Cardio/Vascular: Yes: CAD, CHF, HTN, Hyperlipdemia Pulmonary: No: Asthma, COPD Renal/: Yes: Renal Inusuff - Past Surgical History Past Surgical History: Yes: CABG, Stent (coronary) - Alcohol/Substance Use Hx Alcohol Use: No - Smoking History Smoking history: Never smoked Have you smoked in the past 12 months: No Home Medications - Allergies Allergies/Adverse Reactions: Allergies Allergy/AdvReac Type Severity Reaction Status Date / Time No Known Allergies Allergy Verified 04/01/19 01:23 - Home Medications Home Medications: Ambulatory Orders Unobtainable 04/01/19 Family Medical History Family History: Denies Review of Systems - Review of Systems Eyes: reports: No Symptoms HENT: reports: No Symptoms Neck: reports: No Symptoms Cardiovascular: reports: Shortness of Breath Respiratory: reports: SOB Genitourinary: reports: No Symptoms Breasts: reports: No Symptoms Reported Musculoskeletal: reports: Muscle Weakness Integumentary: reports: No Symptoms Neurological: reports: Weakness Endocrine: reports: No Symptoms Hematology/Lymphatic: reports: No Symptoms Psychiatric: reports: No Symptoms - Risk Factors Known Risk Factors: Yes: Age, Gender, Hypertension, Other (CABG; s/p multiple coronary stents (all work done at [facility])) Vital Signs: Vital Signs Temperature 98.1 F 04/02/19 14:00 Pulse Rate 84 04/02/19 14:00 Respiratory Rate 18 04/02/19 08:36 Blood Pressure 107/70 04/02/19 14:00 O2 Sat by Pulse Oximetry (%) 100 04/02/19 08:54 Constitutional: Yes: Anxious Eyes: Yes: Other (blidn bilaterally) HENT: Yes: WNL Neck: Yes: WNL Respiratory: Yes: Diminished (bilaterally), Tachypnea Gastrointestinal: Yes: Soft. No: Tenderness Renal/: Yes: WNL Cardiovascular: Yes: Tachycardia JVD: Yes Carotid Bruit: No PMI: Displaced Heart Sounds: Yes: S1, Split S2 Murmur: Yes: Systolic Murmur, Grade 2 Musculoskeletal: Yes: Muscle Weakness Extremities: Yes: Cool Edema: Yes Edema: LLE: 2+, RLE: 2+ Peripheral Pulses WNL: Yes Integumentary: Yes: Venous Stasis Changes Neurological: Yes: Alert, Oriented, Weakness Psychiatric: Yes: WNL - Other Data Labs, Other Data: CBC, BMP 04/01/19 07:35 04/02/19 05:27 Abnormal Lab Results 04/02/19 05:27 BUN 37.6 H Creatinine 2.0 H Calcium 8.4 L Echo: Report Reviewed Ejection Fraction %: LVEF < 40 % Imaging - Results Chest X-ray: Image Reviewed (marked congestive changes; bilateral pleural effusion) Problem List - Problems (1) Acute on chronic systolic CHF (congestive heart failure) Assessment/Plan: +JVP Bilateral 2+ pitting edema LEs CXR: bilateral pleuarl effusion BNP> 30,000 ECHO: severely reduced LVEF; severe LV dilatation. TNI 0.12; low CKMB relative index. Plan: On furosemide IVP. Start lisinopril; f/u BUN/Cr, and electrolytes carefully (presently 37/2.0). F/u Is and Os, daily weight. Obtain records from [facility] regarding CABG, stents. Code(s): I50.23 - ACUTE ON CHRONIC SYSTOLIC (CONGESTIVE) HEART FAILURE (2) HTN (hypertension) Code(s): I10 - ESSENTIAL (PRIMARY) HYPERTENSION (3) Renal insufficiency Assessment/Plan: Pt denies previoius hx of renal disease. Code(s): N28.9 - DISORDER OF KIDNEY AND URETER, UNSPECIFIED (4) Elevated troponin I level Code(s): R79.89 - OTHER SPECIFIED ABNORMAL FINDINGS OF BLOOD CHEMISTRY (5) H/O heart artery stent Code(s): Z95.5 - PRESENCE OF CORONARY ANGIOPLASTY IMPLANT AND GRAFT
[2019-04-02] MEDS ORDERED: LISINOPRIL 5 MG TABLET (FP) PO ONE (17:39)
[2019-04-02] MEDS: ATORVASTATIN CA 40 MG TABLET (FP) PO SCH (23:14)
[2019-04-03] MEDS: HEPARIN NA (PORCINE) 5,000 UNITS/ML 1ML VIAL SQ SCH ×3 (05:50→21:24)
[2019-04-03] MEDS: FUROSEMIDE 40 MG/4 ML INJECTABLE VIAL IVPUSH SCH ×2 (05:50→14:21)
[2019-04-03 06:03] LABS: BASO % 0.5 % (0-2.0); EOS % 2.5 % (0-4.5); HEMATOCRIT 36.9 % (35.4-49); HEMOGLOBIN 12.4 GM/dL (11.7-16.9); LYMPH % 26.1 % (8-40); MCH 27.9 pg (25.7-33.7); MCHC 33.6 g/dl (32.0-35.9); MEAN PLT VOLUME 9.2 fl (7.5-11.1); MONO % 11.9 % (3.8-10.2); PLATELET COUNT 126 K/MM3 (134-434); RBC 4.45 M/mm3 (4.00-5.60); RDW 15.1 % (11.9-15.9); WHITE BLOOD COUNT 5.4 K/mm3 (4.0-10.0)
[2019-04-03 06:41] LABS: ALBUMIN 2.8 g/dl (3.4-5.0); BILIRUBIN,TOTAL 0.8 mg/dL (0.2-1); CREATININE 1.9 mg/dL (0.55-1.3); MAGNESIUM 1.7 mg/dL (1.8-2.4); TOT PROT 5.4 g/dl (6.4-8.2)
[2019-04-03] MEDS ORDERED: MAGNESIUM SULF 50% (8.12 MEQ/2 ML-1 GM VIAL) IVPB ONE ×2 (06:45→17:15)
[2019-04-03 06:51] LABS: POTASSIUM 2.9 mmol/L (3.5-5.1)
[2019-04-03] MEDS ORDERED: POTASSIUM CHLORIDE TABS 20 MEQ TABLET.ER (FP) PO ONE (08:30)
[2019-04-03] MEDS: KCL 10 MEQ IVPB 10 MEQ/100 ML INFUS.BAG IVPB SCH ×3 (11:11→14:21)
[2019-04-03] MEDS: SPIRONOLACTONE 25 MG TABLET (FP) PO SCH (13:00)
[2019-04-03] MEDS: CLOPIDOGREL BISULFATE 75 MG TABLET (FP) PO SCH (13:01)
[2019-04-03] MEDS: LISINOPRIL 5 MG TABLET (FP) PO SCH (13:01)
[2019-04-03] MEDS: metoPROLOL SUCCINATE 25 MG TAB.SR.24H (FP) PO SCH (13:01)
[2019-04-03] MEDS: ASPIRIN 81 MG CHEWABLE TABLETS PO SCH (13:01)
--- NOTE | 2019-04-03 14:23 | PN ---
Physical Exam: SUBJECTIVE: Patient seen and examined at the bedside. Stated he is feeling well. Endorsed that his feel have been swollen. Denies any acute complaints of cp, sob, abd pain, n/v/c/d, dizziness, lightheadedness, fever, chills, headches. OBJECTIVE: Vital Signs Period Temp Pulse Resp BP Sys/Barber Pulse Ox Last 24 Hr 97.5 F-98.3 F 72-83 18-20 103-123/55-78 96 GENERAL: The patient is awake, alert, and fully oriented, in no acute distress. EYES: Very poorly reactive pupils. White-out of lenses. ENT: Oropharynx clear without exudates, moist mucous membranes. LUNGS: Breath sounds equal, mild bibasilar crackles heard. No wheezes auscultated. HEART: Regular rate and rhythm, S1, S2 with noted systolic ejection murmur. ABDOMEN: Soft, nontender, nondistended, normoactive bowel sounds, no guarding, no rebound, no masses. Liz's negative. EXTREMITIES: 1+ pulses, warm, well-perfused, 3+ pitting edema below the knees. PSYCH: Normal mood, normal affect. SKIN: Warm, dry, normal turgor. Laboratory Results - last 24 hr 04/02/19 04/03/19 04/03/19 05:27 05:18 05:18 WBC 5.4 RBC 4.45 Hgb 12.4 Hct 36.9 MCV 83.0 MCH 27.9 MCHC 33.6 RDW 15.1 Plt Count 126 L MPV 9.2 Absolute Neuts (auto) 3.2 Neutrophils % 59.0 D Lymphocytes % 26.1 D Monocytes % 11.9 H Eosinophils % 2.5 D Basophils % 0.5 Nucleated RBC % 0 Sodium 137 136 Potassium 3.5 2.9 L* Chloride 100 98 Carbon Dioxide 28 30 Anion Gap 9 8 BUN 37.6 H 38.0 H Creatinine 2.0 H 1.9 H Est GFR (CKD-EPI)AfAm 34.25 36.45 Est GFR (CKD-EPI)NonAf 29.56 31.45 Random Glucose 84 88 Calcium 8.4 L 8.0 L Magnesium 2.1 1.7 L Total Bilirubin 0.8 AST 74 H ALT 59 Alkaline Phosphatase 117 Troponin I 0.10 H Total Protein 5.4 L Albumin 2.8 L TSH 2.79 Active Medications Generic Name Dose Route Start Last Admin Trade Name Freq PRN Reason Stop Dose Admin Aspirin 81 mg 04/01/19 10:00 04/03/19 13:01 Asa - PO 81 mg DAILY JANETTE Administration Atorvastatin Calcium 40 mg 04/01/19 22:00 04/02/19 23:14 Lipitor - PO 40 mg HS JANETTE Administration Clopidogrel Bisulfate 75 mg 04/01/19 10:00 04/03/19 13:01 Plavix - PO 75 mg DAILY JANETTE Administration Furosemide 40 mg 04/01/19 14:00 04/03/19 05:50 Lasix Injection - IVPUSH 40 mg BIDLASIX JANETTE Administration Heparin Sodium (Porcine) 5,000 unit 04/01/19 06:00 04/03/19 05:50 Heparin - SQ 5,000 unit TID JANETTE Administration Lisinopril 2.5 mg 04/03/19 10:00 04/03/19 13:01 Prinivil PO 2.5 mg DAILY JANETTE Administration Metoprolol Succinate 12.5 mg 04/01/19 10:00 04/03/19 13:01 Toprol Xl - PO 12.5 mg DAILY JANETTE Administration Spironolactone 25 mg 04/03/19 10:00 04/03/19 13:00 Aldactone - PO 25 mg DAILY JANETTE Administration ECHO: The left ventricle is severely dilated. There is severe global hypokinesis of the left ventricle. Left ventricular systolic function is severely reduced. Ejection Fraction = 25%. The right ventricle is mildly dilated. The right ventricular systolic function is mildly reduced. The left atrium is mildly dilated. The right atrium is mildly dilated. There is moderate mitral annular calcification. There is moderate mitral valve thickening. There is mild to moderate mitral regurgitation. There is mild tricuspid regurgitation. Right ventricular systolic pressure is elevated at 42 mmhg. Assuming the RA pressure is 10 mmHg There is moderate to severe aortic valve thickening. ASSESSMENT/PLAN: Dallas Toscano is a 83 year old male with a past medical history of PMH HTN, CAD s /p 2x stent placements, CHF, legal blindness admitted for acute CHF decompensation. Acute CHF decompensation - echo as above - daily weights, strict Is & Os - weights noting decrease of weight in 1 day - Lasix 40mg IV BID - cardiac monitoring - cardio consulted, recs appreciated, adding Plavix and atorvastatin, trend troponin - added lisinopril 2.5mg daily - added spironolactone 25mg daily - on metoprolol 12.5mg daily - as per cardiology, attempt to obtain records if patient had cath/stress test/ echo if patient is to qualify for ICD/Lifevest - keep electrolytes K 4.0, P 2.5, Mg 2.0 - obtain CXR tomorrow and can likely decrease Lasix dose ENRIQUE vs CKD - improving - attempting to obtain records from previous institution - renal U/S with no noted hydronephrosis. Noted multiple bilateral cortical cysts, will need outpatient f/u - obtain Urine CRE and urea as patient on Lasix HTN - unsure of home meds unable to contact , patient is unsure of his pharmacy - ASA 81mg daily - starting low dose beta carmen for now, 12.5mg lopressor Elevated bili - does not have abd pain - direct bili, elevated - RUQ U/S noting cholelithiasis, gallbladder wall thickening and pericholecystic fluid - HIDA noting no cholecystitis or biliary obstruction. Noted moderate gallbladder distension at 2 hours suggesting gallbladder dyskinesis DVT PPX - heparin 5000 units subq tid FEN - no standing fluids - continue to monitor electrolytes and replete as necessary, hypokalemia and hypomagnesemia noted and repleting - sodium controlled diet Dispo - continue to monitor on telemetry - phone number for Jessika, Visit type - Emergency Visit Emergency Visit: Yes ED Registration Date: 04/01/19 Care time: The patient presented to the Emergency Department on the above date and was hospitalized for further evaluation of their emergent condition. - New Patient This patient is new to me today: No - Critical Care Critical Care patient: No
--- NOTE | 2019-04-03 17:05 | PN ---
Progress Note, Physician Chief Complaint: Pt is sitting up at bedside; no chest pain, dyspnea, palpitations, or dizziness. c/o constipation since admission to [facility]. History of Present Illness: 83 yr old man (kari Rodriguez; raised in [place]), with PMH legally blind, HTN, CABG, CAD s/p 2 stents (all cardiac work done at [facility], [address], per pt), systolic (severely reduced LVEF) CHF, BIBEMS for a week of bland taste when eating and concern regarding Covid-19. Denies f/c, cough, cp/sob, n/ v. Good appetite except bland taste when he eats. Examiner noticed edema of the legs - pt states he has had for 3 days. Pt was admitted at [facility] and discharged w/ Torsemide but has not been taking. Denies hx smoking or heavy drinking. No hx asthma. - Current Medication List Current Medications: Active Medications Aspirin (Asa -) 81 mg PO DAILY [facility] Last Admin: 04/03/19 13:01 Dose: 81 mg Atorvastatin Calcium (Lipitor -) 40 mg PO HS [facility] Last Admin: 04/02/19 23:14 Dose: 40 mg Clopidogrel Bisulfate (Plavix -) 75 mg PO DAILY [facility] Last Admin: 04/03/19 13:01 Dose: 75 mg Furosemide (Lasix Injection -) 40 mg IVPUSH BIDLASIX [facility] Last Admin: 04/03/19 14:21 Dose: 40 mg Heparin Sodium (Porcine) (Heparin -) 5,000 unit SQ TID [facility] Last Admin: 04/03/19 14:21 Dose: 5,000 unit Lisinopril (Prinivil) 2.5 mg PO DAILY [facility] Last Admin: 04/03/19 13:01 Dose: 2.5 mg Metoprolol Succinate (Toprol Xl -) 12.5 mg PO DAILY [facility] Last Admin: 04/03/19 13:01 Dose: 12.5 mg Spironolactone (Aldactone -) 25 mg PO DAILY [facility] Last Admin: 04/03/19 13:00 Dose: 25 mg - Objective Vital Signs: Vital Signs Temperature 98.4 F 04/03/19 14:00 Pulse Rate 84 04/03/19 14:00 Respiratory Rate 18 04/03/19 06:00 Blood Pressure 104/48 L 04/03/19 14:00 O2 Sat by Pulse Oximetry (%) 96 04/02/19 21:00 Constitutional: Yes: Calm Eyes: Yes: WNL, Other (blind) HENT: Yes: WNL Neck: Yes: WNL Cardiovascular: Yes: S1, S2 (split) Respiratory: Yes: WNL Gastrointestinal: Yes: Soft ...Rectal Exam: Yes: Deferred Genitourinary: Yes: WNL Breast(s): Yes: WNL Musculoskeletal: Yes: Muscle Weakness Extremities: Yes: WNL Edema: No Peripheral Pulses WNL: Yes Integumentary: Yes: WNL Neurological: Yes: Alert, Oriented, Weakness Psychiatric: Yes: Alert, Oriented Labs: CBC, BMP 04/03/19 05:18 Abnormal Lab Results 04/02/19 04/03/19 04/03/19 05:27 05:18 05:18 Plt Count 126 L Monocytes % 11.9 H Potassium 2.9 L* Chloride BUN 37.6 H 38.0 H Creatinine 2.0 H 1.9 H Calcium 8.4 L 8.0 L Phosphorus Magnesium 1.7 L AST 74 H Troponin I 0.10 H Total Protein 5.4 L Albumin 2.8 L 04/03/19 16:45 Plt Count Monocytes % Potassium Chloride 97 L BUN 37.7 H Creatinine 2.1 H Calcium Phosphorus 2.4 L Magnesium AST Troponin I Total Protein Albumin - ....Imaging Chest X-ray: Image Reviewed EKG: Image Reviewed Problem List - Problems (1) Acute on chronic systolic CHF (congestive heart failure) Assessment/Plan: +JVP Bilateral 2+ pitting edema LEs: slight improvement today. BNP> 30,000 ECHO: severely reduced LVEF; severe LV dilatation. TNI 0.10; low CKMB relative index. Plan: On furosemide IVP. Repeat CXR in am. Plan to decrease dose as clinically improves from acute CHF episode. Continue metoprlol ER, sprionolactone Started lisinopril. Gradually increase doses of above as tolerated (with severe LV dysfunction, may need to accept systolic BP in the 90s mmHg as soon as clinically stable). BUN/Cr, and electrolytes carefully (presently 37/2.0). F/u Is and Os, daily weight. Obtain records from [facility] regarding CABG, stents (on both ASA and clopidogrel; will stop the latter if stents are more than one year old). Plan for optimization of medications/doses. Will require Life Vest upon discharge, with future followup with cardiology regarding possible ICD. Code(s): I50.23 - ACUTE ON CHRONIC SYSTOLIC (CONGESTIVE) HEART FAILURE (2) HTN (hypertension) Code(s): I10 - ESSENTIAL (PRIMARY) HYPERTENSION (3) Renal insufficiency Assessment/Plan: Pt denies previoius hx of renal disease. Cr 2.0-->1.9 Code(s): N28.9 - DISORDER OF KIDNEY AND URETER, UNSPECIFIED (4) Elevated troponin I level Code(s): R79.89 - OTHER SPECIFIED ABNORMAL FINDINGS OF BLOOD CHEMISTRY (5) H/O heart artery stent Code(s): Z95.5 - PRESENCE OF CORONARY ANGIOPLASTY IMPLANT AND GRAFT
[2019-04-03 17:43] LABS: BLOOD UREA NITROGEN 37.7 mg/dL (7-18); CALCIUM 8.5 mg/dL (8.5-10.1); CREATININE 2.1 mg/dL (0.55-1.3); MAGNESIUM 2.3 mg/dL (1.8-2.4); PHOSPHOROUS 2.4 mg/dL (2.5-4.9); POTASSIUM 3.9 mmol/L (3.5-5.1)
[2019-04-03] MEDS ORDERED: NAPH,MB-DB/K PH,MBDB POWDER PACKET PO ONE (17:52)
--- NOTE | 2019-04-03 18:23 | PN ---
Teaching Attending Note Name of Resident: Gabino Hernandez ATTENDING PHYSICIAN STATEMENT I saw and evaluated the patient. I reviewed the resident's note and discussed the case with the resident. I agree with the resident's findings and plan as documented. SUBJECTIVE: No SOB , no fever or chills no N/V . feels better OBJECTIVE: NAd, no eye contact Cv : RRR Lungs: CTAB Ext : 2+ pitting edema on legs. no erythema A/P 83 year old man with a history of HTN, CAD with stents, CHF, legal blindness who presented to the ED with leg swelling and SOB, he was diagnosed with acute systolic CHF 1- Acute systolic CHF. improved 2- demand ischemia 3- possible CKD 4- HTN 5- CAD, s/p stents 6- Transaminitis Plan : - cont diuresis - add spironolactone - cont Lisinopril - cont torpol - records were requested from OSH - evaluation for a life vest depends on the presence of ischemic VS Non ischemic CMP . d/w card - cont Asa and plavix - monitor renal function - HIDA neg - monitor LFTS - DVT PX heparin sq message left to his . social work involved. records pending
[2019-04-03] MEDS: ATORVASTATIN CA 40 MG TABLET (FP) PO SCH (21:24)
[2019-04-03] MEDS ORDERED: MAGNESIUM OXIDE 400 MG TABLET (FP) PO SCH (22:00)
[2019-04-04] MEDS: FUROSEMIDE 40 MG/4 ML INJECTABLE VIAL IVPUSH SCH ×2 (06:09→14:36)
[2019-04-04] MEDS: HEPARIN NA (PORCINE) 5,000 UNITS/ML 1ML VIAL SQ SCH ×3 (06:09→21:26)
[2019-04-04] MEDS ORDERED: NAPH,MB-DB/K PH,MBDB POWDER PACKET PO ONE (06:12)
[2019-04-04 07:20] LABS: BASO % 0.4 % (0-2.0); EOS % 1.4 % (0-4.5); HEMATOCRIT 39.4 % (35.4-49); HEMOGLOBIN 12.9 GM/dL (11.7-16.9); LYMPH % 28.5 % (8-40); MCH 27.5 pg (25.7-33.7); MCHC 32.9 g/dl (32.0-35.9); MEAN CELL VOLUME 83.6 fl (80-96); MEAN PLT VOLUME 8.9 fl (7.5-11.1); MONO % 14.7 % (3.8-10.2); PLATELET COUNT 125 K/MM3 (134-434); RBC 4.71 M/mm3 (4.00-5.60); WHITE BLOOD COUNT 4.8 K/mm3 (4.0-10.0)
[2019-04-04 07:54] LABS: ALBUMIN 2.9 g/dl (3.4-5.0); BILIRUBIN,TOTAL 0.7 mg/dL (0.2-1); BLOOD UREA NITROGEN 39.4 mg/dL (7-18); CALCIUM 8.3 mg/dL (8.5-10.1); CREATININE 1.9 mg/dL (0.55-1.3); MAGNESIUM 2.2 mg/dL (1.8-2.4); PHOSPHOROUS 2.4 mg/dL (2.5-4.9); POTASSIUM 3.8 mmol/L (3.5-5.1); TOT PROT 5.4 g/dl (6.4-8.2)
--- NOTE | 2019-04-04 08:12 | PN ---
Physical Exam: SUBJECTIVE: Patient seen and examined at the bedside. Overnight event noted of VT for 13 beats, asymptomatic. Patient stated he was feeling well and improved from the previous day. Denied cp, sob, abd pain, n/v/c/d, fever, chills, headaches, lightheadedness, dizziness. OBJECTIVE: Vital Signs Period Temp Pulse Resp BP Sys/Barber Pulse Ox Last 24 Hr 97.7 F-98.4 F 72-84 17-20 99-107/44-68 97-98 GENERAL: The patient is awake, alert, and fully oriented, in no acute distress. EYES: Very poorly reactive pupils. White-out of lenses. ENT: Oropharynx clear without exudates, moist mucous membranes. LUNGS: Breath sounds equal, mild bibasilar crackles heard. No wheezes auscultated. HEART: Regular rate and rhythm, S1, S2 with noted systolic ejection murmur. ABDOMEN: Soft, nontender, nondistended, normoactive bowel sounds, no guarding, no rebound, no masses. Liz's negative. EXTREMITIES: 1+ pulses, warm, well-perfused, 2+ pitting edema below the knees. PSYCH: Normal mood, normal affect. SKIN: Warm, dry, normal turgor. Laboratory Results - last 24 hr 04/03/19 04/04/19 04/04/19 16:45 05:55 05:55 WBC 4.8 RBC 4.71 Hgb 12.9 Hct 39.4 MCV 83.6 MCH 27.5 MCHC 32.9 RDW 15.0 Plt Count 125 L MPV 8.9 Absolute Neuts (auto) 2.7 Neutrophils % 55.0 Lymphocytes % 28.5 Monocytes % 14.7 H Eosinophils % 1.4 Basophils % 0.4 Nucleated RBC % 0 Sodium 136 136 Potassium 3.9 3.8 Chloride 97 L 98 Carbon Dioxide 30 31 Anion Gap 9 7 L BUN 37.7 H 39.4 H Creatinine 2.1 H 1.9 H Est GFR (CKD-EPI)AfAm 32.29 36.45 Est GFR (CKD-EPI)NonAf 27.86 31.45 Random Glucose 100 84 Calcium 8.5 8.3 L Phosphorus 2.4 L 2.4 L Magnesium 2.3 2.2 Total Bilirubin 0.7 AST 80 H ALT 66 H Alkaline Phosphatase 112 Total Protein 5.4 L Albumin 2.9 L Active Medications Generic Name Dose Route Start Last Admin Trade Name Freq PRN Reason Stop Dose Admin Aspirin 81 mg 04/01/19 10:00 04/03/19 13:01 Asa - PO 81 mg DAILY JANETTE Administration Atorvastatin Calcium 40 mg 04/01/19 22:00 04/03/19 21:24 Lipitor - PO 40 mg HS JANETTE Administration Clopidogrel Bisulfate 75 mg 04/01/19 10:00 04/03/19 13:01 Plavix - PO 75 mg DAILY JANETTE Administration Furosemide 20 mg 04/04/19 08:06 Lasix Injection - IVPUSH BIDLASIX JANETTE Heparin Sodium (Porcine) 5,000 unit 04/01/19 06:00 04/04/19 06:09 Heparin - SQ 5,000 unit TID JANETTE Administration Lisinopril 2.5 mg 04/03/19 10:00 04/03/19 13:01 Prinivil PO 2.5 mg DAILY JANETTE Administration Metoprolol Succinate 12.5 mg 04/01/19 10:00 04/03/19 13:01 Toprol Xl - PO 12.5 mg DAILY JANETTE Administration Spironolactone 25 mg 04/03/19 10:00 04/03/19 13:00 Aldactone - PO 25 mg DAILY JANETTE Administration ECHO: The left ventricle is severely dilated. There is severe global hypokinesis of the left ventricle. Left ventricular systolic function is severely reduced. Ejection Fraction = 25%. The right ventricle is mildly dilated. The right ventricular systolic function is mildly reduced. The left atrium is mildly dilated. The right atrium is mildly dilated. There is moderate mitral annular calcification. There is moderate mitral valve thickening. There is mild to moderate mitral regurgitation. There is mild tricuspid regurgitation. Right ventricular systolic pressure is elevated at 42 mmhg. Assuming the RA pressure is 10 mmHg There is moderate to severe aortic valve thickening. [facility] Records, procedure date 02/28/17 Cath Report: LAD ostial 100% stenosis, circumflex patent stent in proximal and mid segments, RCA proximal 80% stenosis with RUIZ flow 3. Placed Márquez Drug Eluting Stent. Recommendations of asa 81mg indefinitely, clopidogrel 75mg for 6 months or longer as indicated. Statin indefinitely ASSESSMENT/PLAN: Dallas Toscano is a 83 year old male with a past medical history of PMH HTN, CAD s /p 2x stent placements, CHF, legal blindness admitted for acute CHF decompensation. Acute CHF decompensation - echo as above - daily weights, strict Is & Os - weights noting decrease of weight over admission period - Lasix 20mg IV BID - cardiac monitoring - cardio consulted, recs appreciated, added atorvastatin - continue lisinopril 2.5mg daily - continue spironolactone 25mg daily - on metoprolol 12.5mg daily - can likely discontinue plavix as per cardiology as previous stent placed greater than 1 year prior - previous cardiology records as above - LifeVest arrangements made and will receive Lifevest upon discharge - keep electrolytes K 4.0, P 2.5, Mg 2.0 - CXR improved from admission - walked 100ft with PT ENRIQUE vs CKD - improving and stable - attempting to obtain records from previous institution - renal U/S with no noted hydronephrosis. Noted multiple bilateral cortical cysts, will need outpatient f/u - obtain Urine CRE and urea as patient on Lasix HTN - unsure of home meds, patient is unsure of his pharmacy, attempting to contact in regards to patient pharmacy - ASA 81mg daily - continue 12.5mg lopressor Elevated bili - does not have abd pain - direct bili, elevated - rising LFTs, continue to monitor - RUQ U/S noting cholelithiasis, gallbladder wall thickening and pericholecystic fluid - HIDA noting no cholecystitis or biliary obstruction. Noted moderate gallbladder distension at 2 hours suggesting gallbladder dyskinesis DVT PPX - heparin 5000 units subq tid FEN - no standing fluids - continue to monitor electrolytes and replete as necessary, hypokalemia and hypomagnesemia noted and repleting - sodium controlled diet Dispo - continue to monitor on telemetry - phone number for Jessika, Visit type - Emergency Visit Emergency Visit: Yes ED Registration Date: 04/01/19 Care time: The patient presented to the Emergency Department on the above date and was hospitalized for further evaluation of their emergent condition. - New Patient This patient is new to me today: No - Critical Care Critical Care patient: No
[2019-04-04] MEDS: ASPIRIN 81 MG CHEWABLE TABLETS PO SCH (09:35)
[2019-04-04] MEDS: CLOPIDOGREL BISULFATE 75 MG TABLET (FP) PO SCH (09:35)
[2019-04-04] MEDS: metoPROLOL SUCCINATE 25 MG TAB.SR.24H (FP) PO SCH (09:35)
[2019-04-04] MEDS: LISINOPRIL 5 MG TABLET (FP) PO SCH (09:35)
[2019-04-04] MEDS: SPIRONOLACTONE 25 MG TABLET (FP) PO SCH (09:35)
--- NOTE | 2019-04-04 16:28 | PN ---
Teaching Attending Note Name of Resident: Gabino Hernandez ATTENDING PHYSICIAN STATEMENT I saw and evaluated the patient. I reviewed the resident's note and discussed the case with the resident. I agree with the resident's findings and plan as documented. SUBJECTIVE: No fever or chills. no pain, no SOB. no events over night OBJECTIVE: NAD, no eye contact CV: RRR Lungs: CTAB Ext: 2+ pitting edema on lower half of the legs. no erythema A/P 83 year old man with a history of HTN, CAD with stents, CHF, legal blindness who presented to the ED with leg swelling and SOB, he was diagnosed with acute systolic CHF 1- Acute systolic CHF. improved 2- Demand ischemia 3- Possible CKD 4- HTN. 5- CAD, s/p stents 6- Transaminitis Plan : - decrease dose of lasix - cont spironolactone - cont Lisinopril - cont torpol - records were requested from OSH , still pending . - Life vest is needed , process started. team d/w Dr. Ozuna - cont Asa and plavix. management of anti plt depends on records - monitor renal function - monitor LFTS . dc lipitor in settign of rising LFTs. might resume later - DVT PX heparin sq - will try to communicate with his regarding his pharmacy/ meds/doctors.
[2019-04-05] MEDS: HEPARIN NA (PORCINE) 5,000 UNITS/ML 1ML VIAL SQ SCH ×3 (07:05→23:01)
[2019-04-05] MEDS: FUROSEMIDE 40 MG/4 ML INJECTABLE VIAL IVPUSH SCH ×2 (07:05→14:08)
[2019-04-05 07:26] LABS: BASO % 0.4 % (0-2.0); EOS % 1.4 % (0-4.5); HEMATOCRIT 41.1 % (35.4-49); HEMOGLOBIN 13.6 GM/dL (11.7-16.9); LYMPH % 31.6 % (8-40); MCH 27.4 pg (25.7-33.7); MCHC 33.1 g/dl (32.0-35.9); MEAN CELL VOLUME 82.8 fl (80-96); MEAN PLT VOLUME 9.5 fl (7.5-11.1); MONO % 9.4 % (3.8-10.2); NEUT % 57.2 % (42.8-82.8); PLATELET COUNT 146 K/MM3 (134-434); RBC 4.96 M/mm3 (4.00-5.60); RDW 15.2 % (11.9-15.9); WHITE BLOOD COUNT 6.4 K/mm3 (4.0-10.0)
[2019-04-05 07:54] LABS: ALBUMIN 3.2 g/dl (3.4-5.0); BILIRUBIN,TOTAL 0.6 mg/dL (0.2-1); BLOOD UREA NITROGEN 45.6 mg/dL (7-18); CALCIUM 8.4 mg/dL (8.5-10.1); MAGNESIUM 1.9 mg/dL (1.8-2.4); PHOSPHOROUS 2.4 mg/dL (2.5-4.9); POTASSIUM 4.1 mmol/L (3.5-5.1)
[2019-04-05] MEDS: NAPH,MB-DB/K PH,MBDB POWDER PACKET PO SCH (09:27)
[2019-04-05] MEDS: ASPIRIN 81 MG CHEWABLE TABLETS PO SCH (09:27)
[2019-04-05] MEDS: SPIRONOLACTONE 25 MG TABLET (FP) PO SCH (09:27)
[2019-04-05] MEDS: metoPROLOL SUCCINATE 25 MG TAB.SR.24H (FP) PO SCH (09:27)
[2019-04-05] MEDS: LISINOPRIL 5 MG TABLET (FP) PO SCH (09:27)
[2019-04-05] MEDS: CLOPIDOGREL BISULFATE 75 MG TABLET (FP) PO SCH (09:27)
--- NOTE | 2019-04-05 16:41 | PN ---
Physical Exam: SUBJECTIVE: Patient seen and examined at the bedside. Patient stated that he was feeling well and denied any acute complaints of cp, sob, abd pain, n/v/c/d, headaches, dizziness, lightheadedness, focal or generalized weakness. was called and refused to give information regarding the patient's pharmacy , primary care physician, or current medications. Spoken with Cameron at [facility] for Lifevest and currently in the process of processing paperwork for the LifeVest. OBJECTIVE: Vital Signs Period Temp Pulse Resp BP Sys/Barber Pulse Ox Last 24 Hr 97.5 F-99.4 F 71-80 18-20 97-117/48-71 97-98 GENERAL: The patient is awake, alert, and fully oriented, in no acute distress. EYES: Very poorly reactive pupils. White-out of lenses. ENT: Oropharynx clear without exudates, moist mucous membranes. LUNGS: Breath sounds equal, mild bibasilar crackles heard. No wheezes auscultated. HEART: Regular rate and rhythm, S1, S2 with noted systolic ejection murmur. ABDOMEN: Soft, nontender, nondistended, normoactive bowel sounds, no guarding, no rebound, no masses. Liz's negative. EXTREMITIES: 1+ pulses, warm, well-perfused, 2+ pitting edema below the knees. PSYCH: Normal mood, normal affect. SKIN: Warm, dry, normal turgor. Laboratory Results - last 24 hr 04/05/19 04/05/19 06:02 06:02 WBC 6.4 RBC 4.96 Hgb 13.6 Hct 41.1 MCV 82.8 MCH 27.4 MCHC 33.1 RDW 15.2 Plt Count 146 MPV 9.5 Absolute Neuts (auto) 3.7 Neutrophils % 57.2 Lymphocytes % 31.6 Monocytes % 9.4 Eosinophils % 1.4 Basophils % 0.4 Nucleated RBC % 0 Sodium 134 L Potassium 4.1 Chloride 94 L Carbon Dioxide 32 Anion Gap 8 BUN 45.6 H Creatinine 2.0 H Est GFR (CKD-EPI)AfAm 34.25 Est GFR (CKD-EPI)NonAf 29.56 Random Glucose 79 Calcium 8.4 L Phosphorus 2.4 L Magnesium 1.9 Total Bilirubin 0.6 AST 84 H ALT 77 H Alkaline Phosphatase 118 H Total Protein 6.0 L Albumin 3.2 L Active Medications Generic Name Dose Route Start Last Admin Trade Name Freq PRN Reason Stop Dose Admin Aspirin 81 mg 04/01/19 10:00 04/05/19 09:27 Asa - PO 81 mg DAILY JANETTE Administration Furosemide 20 mg 04/04/19 08:06 04/05/19 14:08 Lasix Injection - IVPUSH 20 mg BIDLASIX JANETTE Administration Heparin Sodium (Porcine) 5,000 unit 04/01/19 06:00 04/05/19 14:08 Heparin - SQ 5,000 unit TID JANETTE Administration Lisinopril 2.5 mg 04/03/19 10:00 04/05/19 09:27 Prinivil PO 2.5 mg DAILY JANETTE Administration Metoprolol Succinate 12.5 mg 04/01/19 10:00 04/05/19 09:27 Toprol Xl - PO 12.5 mg DAILY JANETTE Administration Potassium Phos/Sodium Phos 1 packet 04/05/19 10:00 04/05/19 09:27 Phos-Nak Packet - PO 1 packet DAILY JANETTE Administration Spironolactone 25 mg 04/03/19 10:00 04/05/19 09:27 Aldactone - PO 25 mg DAILY JANETTE Administration ECHO: The left ventricle is severely dilated. There is severe global hypokinesis of the left ventricle. Left ventricular systolic function is severely reduced. Ejection Fraction = 25%. The right ventricle is mildly dilated. The right ventricular systolic function is mildly reduced. The left atrium is mildly dilated. The right atrium is mildly dilated. There is moderate mitral annular calcification. There is moderate mitral valve thickening. There is mild to moderate mitral regurgitation. There is mild tricuspid regurgitation. Right ventricular systolic pressure is elevated at 42 mmhg. Assuming the RA pressure is 10 mmHg There is moderate to severe aortic valve thickening. [facility] Records, procedure date 02/28/17 Cath Report: LAD ostial 100% stenosis, circumflex patent stent in proximal and mid segments, RCA proximal 80% stenosis with RUIZ flow 3. Placed Márquez Drug Eluting Stent. Recommendations of asa 81mg indefinitely, clopidogrel 75mg for 6 months or longer as indicated. Statin indefinitely ASSESSMENT/PLAN: Dallas Toscano is a 83 year old male with a past medical history of PMH HTN, CAD s /p 2x stent placements, CHF, legal blindness admitted for acute CHF decompensation. Acute CHF decompensation - echo as above - daily weights, strict Is & Os - weights noting decrease of weight over admission period - Lasix 20mg IV BID, will be switched to PO tomorrow - cardiac monitoring - cardio consulted, recs appreciated - atorvastatin 10mg daily - continue lisinopril 2.5mg daily - continue spironolactone 25mg daily - on metoprolol 12.5mg daily - discontinued Plavix - previous cardiology records as above - LifeVest arrangements made and will receive Lifevest upon discharge - keep electrolytes K 4.0, P 2.5, Mg 2.0 - CXR improved from admission - walked 100ft with PT - if unable to get medication reconciliation by discharge, will arrange to have new medications sent with patient, advise to not take old medications and follow up with cardiology outpatient, spoken with cardiology and agreed. Patient will decide with family as to who to follow up with after discharge ENRIQUE vs CKD - improving and stable - attempting to obtain records from previous institution - renal U/S with no noted hydronephrosis. Noted multiple bilateral cortical cysts, will need outpatient f/u - obtain Urine CRE and urea as patient on Lasix HTN - unsure of home meds, patient is unsure of his pharmacy, refusing to give information about medications or pharmacy - ASA 81mg daily - continue 12.5mg lopressor Elevated bili - does not have abd pain - direct bili, elevated - rising LFTs, continue to monitor - RUQ U/S noting cholelithiasis, gallbladder wall thickening and pericholecystic fluid - HIDA noting no cholecystitis or biliary obstruction. Noted moderate gallbladder distension at 2 hours suggesting gallbladder dyskinesis DVT PPX - heparin 5000 units subq tid FEN - no standing fluids - continue to monitor electrolytes and replete as necessary, hypokalemia and hypomagnesemia noted and repleting - sodium controlled diet Dispo - continue to monitor on telemetry - phone number for Jessika, Visit type - Emergency Visit Emergency Visit: Yes ED Registration Date: 04/01/19 Care time: The patient presented to the Emergency Department on the above date and was hospitalized for further evaluation of their emergent condition. - New Patient This patient is new to me today: No - Critical Care Critical Care patient: No
--- NOTE | 2019-04-05 19:39 | PN ---
Teaching Attending Note Name of Resident: Gabino Hernandez ATTENDING PHYSICIAN STATEMENT I saw and evaluated the patient. I reviewed the resident's note and discussed the case with the resident. I agree with the resident's findings and plan as documented. SUBJECTIVE: No fever or chills . No LICONA , no OSB , no CP. OBJECTIVE: NAD CV: RRR Lungs: CTAB Ext: 2+ pitting edema on legs above the ankles. A/P 83 year old man with a history of HTN, CAD with stents, CHF, legal blindness who presented to the ED with leg swelling and SOB, he was diagnosed with acute systolic CHF. 1- Acute systolic CHF. improved 2- Demand ischemia 3- Possible CKD 4- HTN. 5- CAD, s/p stents. 6- Transaminitis. Plan : - IV lasix today and switch to PO tomorrow - cont spironolactone - cont Lisinopril - cont torpol - Life vest is pending - cont Asa . - dc plavix as stents were placed in 2018 per obtained records - monitor renal function - monitor LFTS. lipitor on hold , can be resumed as out pt if appropriate - was finally reached, but refused to provide any information about his meds, pharmacy, or any medical info. - heparin sq.
[2019-04-05 20:14] VITALS: BMI 19.5
--- NOTE | 2019-04-06 01:11 | PN ---
Progress Note, Physician Chief Complaint: Pt is A&Ox3; no chest pain, dyspnea, or palpitations. History of Present Illness: 83 yr old man (kari Rodriguez; raised in [place]), with PMH legally blind, HTN, CABG, CAD s/p 2 stents (all cardiac work done at [facility], [address], per pt), systolic (severely reduced LVEF) CHF, BIBEMS for a week of bland taste when eating and concern regarding Covid-19. Denies f/c, cough, cp/sob, n/ v. Good appetite except bland taste when he eats. Examiner noticed edema of the legs - pt states he has had for 3 days. Pt was admitted at [facility] and discharged w/ Torsemide but has not been taking. Denies hx smoking or heavy drinking. No hx asthma. - Current Medication List Current Medications: Active Medications Aspirin (Asa -) 81 mg PO DAILY [facility] Last Admin: 04/05/19 09:27 Dose: 81 mg Furosemide (Lasix -) 40 mg PO DAILY [facility] Heparin Sodium (Porcine) (Heparin -) 5,000 unit SQ TID [facility] Last Admin: 04/05/19 23:01 Dose: 5,000 unit Lisinopril (Prinivil) 2.5 mg PO DAILY [facility] Last Admin: 04/05/19 09:27 Dose: 2.5 mg Metoprolol Succinate (Toprol Xl -) 12.5 mg PO DAILY [facility] Last Admin: 04/05/19 09:27 Dose: 12.5 mg Potassium Phos/Sodium Phos (Phos-Nak Packet -) 1 packet PO DAILY [facility] Last Admin: 04/05/19 09:27 Dose: 1 packet Spironolactone (Aldactone -) 25 mg PO DAILY [facility] Last Admin: 04/05/19 09:27 Dose: 25 mg - Objective Vital Signs: Vital Signs Temperature 97.9 F 04/05/19 18:00 Pulse Rate 80 04/05/19 18:00 Respiratory Rate 20 04/05/19 18:00 Blood Pressure 123/54 L 04/05/19 18:00 O2 Sat by Pulse Oximetry (%) 97 04/05/19 09:00 Constitutional: Yes: Calm Eyes: Yes: WNL HENT: Yes: WNL Cardiovascular: Yes: S1, S2 (split) Respiratory: Yes: Diminished (right base) Gastrointestinal: Yes: Soft ...Rectal Exam: Yes: Deferred Genitourinary: No: Anuria Breast(s): Yes: WNL Musculoskeletal: Yes: Muscle Weakness Extremities: Yes: Cool Edema: No Peripheral Pulses WNL: Yes Integumentary: Yes: WNL Neurological: Yes: Alert, Oriented, Weakness Psychiatric: Yes: Alert, Oriented Labs: CBC, BMP 04/05/19 06:02 04/05/19 06:02 - ....Imaging Chest X-ray: Image Reviewed EKG: Image Reviewed Problem List - Problems (1) Acute on chronic systolic CHF (congestive heart failure) Assessment/Plan: CXR: right basal pleural effusion. Plan: On furosemide IVP. Plan to decrease dose as clinically improves from acute CHF episode. Continue metoprlol ER, sprionolactone Started lisinopril. Gradually increase doses of above as tolerated (with severe LV dysfunction, may need to accept systolic BP in the 90s mmHg as soon as clinically stable). BUN/Cr, and electrolytes carefully (presently 37/2.0). F/u Is and Os, daily weight. Obtain records from [facility] regarding CABG, stents (on both ASA and clopidogrel; will stop the latter if stents are more than one year old). Plan for optimization of medications/doses. Will require Life Vest upon discharge, with future followup with cardiology regarding possible ICD. Code(s): I50.23 - ACUTE ON CHRONIC SYSTOLIC (CONGESTIVE) HEART FAILURE (2) HTN (hypertension) Code(s): I10 - ESSENTIAL (PRIMARY) HYPERTENSION (3) Renal insufficiency Assessment/Plan: Pt denies previoius hx of renal disease. Cr 2.0-->1.9 Code(s): N28.9 - DISORDER OF KIDNEY AND URETER, UNSPECIFIED (4) Elevated troponin I level Code(s): R79.89 - OTHER SPECIFIED ABNORMAL FINDINGS OF BLOOD CHEMISTRY (5) H/O heart artery stent Code(s): Z95.5 - PRESENCE OF CORONARY ANGIOPLASTY IMPLANT AND GRAFT
--- NOTE | 2019-04-06 01:26 | PN ---
Progress Note, Physician Chief Complaint: Pt is A&Ox3; sitting up at bedside; no chest pain, dyspnea, or palpitations. History of Present Illness: 83 yr old man (kari Rodriguez; raised in [place]), with PMH legally blind, HTN, CABG, CAD s/p 2 stents (all cardiac work done at [facility], [address], per pt), systolic (severely reduced LVEF) CHF, BIBEMS for a week of bland taste when eating and concern regarding Covid-19. Denies f/c, cough, cp/sob, n/ v. Good appetite except bland taste when he eats. Examiner noticed edema of the legs - pt states he has had for 3 days. Pt was admitted at [facility] and discharged w/ Torsemide but has not been taking. Denies hx smoking or heavy drinking. No hx asthma. - Current Medication List Current Medications: Active Medications Aspirin (Asa -) 81 mg PO DAILY [facility] Last Admin: 04/05/19 09:27 Dose: 81 mg Furosemide (Lasix -) 40 mg PO DAILY [facility] Heparin Sodium (Porcine) (Heparin -) 5,000 unit SQ TID [facility] Last Admin: 04/05/19 23:01 Dose: 5,000 unit Lisinopril (Prinivil) 2.5 mg PO DAILY [facility] Last Admin: 04/05/19 09:27 Dose: 2.5 mg Metoprolol Succinate (Toprol Xl -) 12.5 mg PO DAILY [facility] Last Admin: 04/05/19 09:27 Dose: 12.5 mg Potassium Phos/Sodium Phos (Phos-Nak Packet -) 1 packet PO DAILY [facility] Last Admin: 04/05/19 09:27 Dose: 1 packet Spironolactone (Aldactone -) 25 mg PO DAILY [facility] Last Admin: 04/05/19 09:27 Dose: 25 mg - Objective Vital Signs: Vital Signs Temperature 97.9 F 04/05/19 18:00 Pulse Rate 80 04/05/19 18:00 Respiratory Rate 20 04/05/19 18:00 Blood Pressure 123/54 L 04/05/19 18:00 O2 Sat by Pulse Oximetry (%) 97 04/05/19 09:00 Constitutional: Yes: No Distress Eyes: Yes: Other (blindness bilaterally) HENT: Yes: WNL Neck: Yes: WNL Cardiovascular: Yes: Murmur, S1, S2 Respiratory: Yes: Regular Gastrointestinal: Yes: Soft ...Rectal Exam: Yes: Deferred Genitourinary: No: Anuria Musculoskeletal: Yes: Joint Stiffness, Muscle Weakness Extremities: Yes: Cool Edema: No Peripheral Pulses WNL: Yes Integumentary: Yes: WNL Neurological: Yes: Alert, Oriented, Weakness Psychiatric: Yes: Alert, Oriented Labs: CBC, BMP 04/05/19 06:02 04/05/19 06:02 - ....Imaging EKG: Image Reviewed Problem List - Problems (1) Acute on chronic systolic CHF (congestive heart failure) Assessment/Plan: s/p 2 coronary stents 2018 at [facility]. On ASA; clopoidogrel discontinued. On metoprolol, lisinopril, and spironolactone; furosemide prn. F/u BUN/Cr, electrolytes, daily weight, Is and Os. When discharged home, will be on Life Vest unless pt refuses. (When questioned regarding prior workup, pt believes his cardiac team had not wanted to consider ICD due to his age. He plans to discuss this with his and sons). Code(s): I50.23 - ACUTE ON CHRONIC SYSTOLIC (CONGESTIVE) HEART FAILURE (2) HTN (hypertension) Code(s): I10 - ESSENTIAL (PRIMARY) HYPERTENSION (3) Renal insufficiency Assessment/Plan: Pt denies previoius hx of renal disease. Cr 2.0-->1.9 Code(s): N28.9 - DISORDER OF KIDNEY AND URETER, UNSPECIFIED (4) Elevated troponin I level Code(s): R79.89 - OTHER SPECIFIED ABNORMAL FINDINGS OF BLOOD CHEMISTRY (5) H/O heart artery stent Code(s): Z95.5 - PRESENCE OF CORONARY ANGIOPLASTY IMPLANT AND GRAFT
[2019-04-06] MEDS: HEPARIN NA (PORCINE) 5,000 UNITS/ML 1ML VIAL SQ SCH ×3 (06:44→22:06)
[2019-04-06 08:02] LABS: BILIRUBIN,TOTAL 0.9 mg/dL (0.2-1); BLOOD UREA NITROGEN 42.6 mg/dL (7-18); CALCIUM 8.6 mg/dL (8.5-10.1); CREATININE 1.8 mg/dL (0.55-1.3); MAGNESIUM 1.9 mg/dL (1.8-2.4); PHOSPHOROUS 2.8 mg/dL (2.5-4.9); TOT PROT 5.4 g/dl (6.4-8.2)
[2019-04-06] MEDS: NAPH,MB-DB/K PH,MBDB POWDER PACKET PO SCH (09:37)
[2019-04-06] MEDS: SPIRONOLACTONE 25 MG TABLET (FP) PO SCH (09:37)
[2019-04-06] MEDS: metoPROLOL SUCCINATE 25 MG TAB.SR.24H (FP) PO SCH (09:37)
[2019-04-06] MEDS: FUROSEMIDE 40 MG TABLET (FP) PO SCH (09:37)
[2019-04-06] MEDS: ASPIRIN 81 MG CHEWABLE TABLETS PO SCH (09:37)
[2019-04-06] MEDS: LISINOPRIL 5 MG TABLET (FP) PO SCH (09:38)
--- NOTE | 2019-04-06 13:09 | PN ---
Physical Exam: SUBJECTIVE: Patient seen and examined at bedside. Feels well. States his breathing is much better. OBJECTIVE: Vital Signs Period Temp Pulse Resp BP Sys/Barber Pulse Ox Last 24 Hr 97.9 F 78-82 18-20 103-123/54-62 Gen: NAD HEENT: NCAT, blind Neck: supple, no bruits, no jvd noted Cardio: irregular, tachycardic, normal s1s2, no mrg noted Pulm: cta b/l Abd: soft, nontender, nondistended Ext: 3+ pitting edema to the midshin b/l Laboratory Results - last 24 hr 04/06/19 05:28 Sodium 134 L Potassium 4.0 Chloride 97 L Carbon Dioxide 30 Anion Gap 8 BUN 42.6 H Creatinine 1.8 H Est GFR (CKD-EPI)AfAm 38.91 Est GFR (CKD-EPI)NonAf 33.57 Random Glucose 86 Calcium 8.6 Phosphorus 2.8 Magnesium 1.9 Total Bilirubin 0.9 AST 67 H ALT 65 H Alkaline Phosphatase 102 Total Protein 5.4 L Albumin 3.0 L Active Medications Generic Name Dose Route Start Last Admin Trade Name Freq PRN Reason Stop Dose Admin Aspirin 81 mg 04/01/19 10:00 04/06/19 09:37 Asa - PO 81 mg DAILY JANETTE Administration Furosemide 40 mg 04/06/19 10:00 04/06/19 09:37 Lasix - PO 40 mg DAILY JANETTE Administration Heparin Sodium (Porcine) 5,000 unit 04/01/19 06:00 04/06/19 06:44 Heparin - SQ 5,000 unit TID JANETTE Administration Lisinopril 2.5 mg 04/03/19 10:00 04/06/19 09:38 Prinivil PO 2.5 mg DAILY JANETTE Administration Metoprolol Succinate 12.5 mg 04/01/19 10:00 04/06/19 09:37 Toprol Xl - PO 12.5 mg DAILY JANETTE Administration Potassium Phos/Sodium Phos 1 packet 04/05/19 10:00 04/06/19 09:37 Phos-Nak Packet - PO 1 packet DAILY JANETTE Administration Spironolactone 25 mg 04/03/19 10:00 04/06/19 09:37 Aldactone - PO 25 mg DAILY JANETTE Administration ASSESSMENT/PLAN: 83 year old male with a past medical history of PMH HTN, CAD s/p 2x stent placements, CHF, legal blindness admitted for acute CHF decompensation. CHF -EF 25% -daily weights, I/Os -c/w lasix 40 po, lisinopril, metoprolol, spironolactone - ENRIQUE vs CKD -mind reader appears stable -unclear baseline -mult cysts. Will need outpt follow up HTN -BP well controlled on metorprolol Hyperbilirubinemia -resolved -s/p RUQ U/S and HIDA showing cholestasis without obstruction Visit type - Emergency Visit Emergency Visit: No - New Patient This patient is new to me today: Yes Date on this admission: 04/06/19 - Critical Care Critical Care patient: No - Discharge Referral Referred to [facility] Med P.C.: No ATTENDING PHYSICIAN STATEMENT I saw and evaluated the patient. I reviewed the resident's note and discussed the case with the resident. I agree with the resident's findings and plan as documented. SUBJECTIVE: OBJECTIVE: ASSESSMENT AND PLAN:
--- NOTE | 2019-04-06 17:12 | PN ---
Teaching Attending Note Name of Resident: Thomas Quezada ATTENDING PHYSICIAN STATEMENT I saw and evaluated the patient. I reviewed the resident's note and discussed the case with the resident. I agree with the resident's findings and plan as documented. SUBJECTIVE: no fever or chills. no pain , no SOB . no CP OBJECTIVE: NAD CV: RRR Lungs: CTAB Ext: 1+ pitting edema on lower legs above the ankles. A/P 83 year old man with a history of HTN, CAD with stents, CHF, legal blindness who presented to the ED with leg swelling and SOB, he was diagnosed with acute systolic CHF. 1- Acute systolic CHF. improved 2- Demand ischemia 3- Possible CKD 4- HTN. 5- CAD, s/p stents. 6- Transaminitis. Plan : - tele with an episode of MAT - po lasix starting today - cont spironolactone - cont Lisinopril - cont torpol - Life vest is pending - cont Asa . - off plavix now . will not resume after dc - monitor renal function - monitor LFTS. lipitor on hold , can be resumed as out pt if appropriate - heparin sq. Dc is pending life vest as patient is at high risk for life threatening arrhythmias
--- NOTE | 2019-04-06 17:36 | PN ---
Progress Note, Physician Chief Complaint: Events noted Not in distress Coverage for Dr. Jan Alba History of Present Illness: Patient was seen and examined. Awake and alert. Chart was reviewed Denies chest pain, SOB or palpitations Blind - Current Medication List Current Medications: Active Medications Aspirin (Asa -) 81 mg PO DAILY [facility] Last Admin: 04/06/19 09:37 Dose: 81 mg Furosemide (Lasix -) 40 mg PO DAILY [facility] Last Admin: 04/06/19 09:37 Dose: 40 mg Heparin Sodium (Porcine) (Heparin -) 5,000 unit SQ TID [facility] Last Admin: 04/06/19 15:13 Dose: 5,000 unit Lisinopril (Prinivil) 2.5 mg PO DAILY [facility] Last Admin: 04/06/19 09:38 Dose: 2.5 mg Metoprolol Succinate (Toprol Xl -) 12.5 mg PO DAILY [facility] Last Admin: 04/06/19 09:37 Dose: 12.5 mg Potassium Phos/Sodium Phos (Phos-Nak Packet -) 1 packet PO DAILY [facility] Last Admin: 04/06/19 09:37 Dose: 1 packet Spironolactone (Aldactone -) 25 mg PO DAILY [facility] Last Admin: 04/06/19 09:37 Dose: 25 mg - Objective Vital Signs: Vital Signs Temperature 98.1 F 04/06/19 14:39 Pulse Rate 98 H 04/06/19 14:39 Respiratory Rate 18 04/06/19 14:39 Blood Pressure 147/56 L 04/06/19 14:39 O2 Sat by Pulse Oximetry (%) 97 04/05/19 09:00 Neck: Yes: Supple Cardiovascular: Yes: Regular Rate and Rhythm, Murmur (SM), S1, S2 Respiratory: Yes: CTA Bilaterally Gastrointestinal: Yes: Normal Bowel Sounds, Soft. No: Tenderness Edema: No Additional Findings/Remarks: - Review of Systems Constitutional: denies: Chills, Fever Cardiovascular: denies Palpitations, (+) Shortness of Breath. denies: Chest Pain Respiratory: denies Cough, (+) SOB. denies: Hemoptysis, Orthopnea, PND Gastrointestinal: denies: Abdominal Pain, Constipation, Diarrhea, Melena, Nausea , Rectal Bleeding, Vomiting Genitourinary: denies: Dysuria, Hematuria Musculoskeletal: denies Joint Pain. denies: Back Pain Neurological: denies: Dizziness, Headache, Seizure, Syncope Labs: CBC, BMP 04/05/19 06:02 04/06/19 05:28 Problem List - Problems (1) Hx of CABG Code(s): Z95.1 - PRESENCE OF AORTOCORONARY BYPASS GRAFT (2) Acute on chronic systolic CHF (congestive heart failure) Code(s): I50.23 - ACUTE ON CHRONIC SYSTOLIC (CONGESTIVE) HEART FAILURE (3) Elevated troponin I level Code(s): R79.89 - OTHER SPECIFIED ABNORMAL FINDINGS OF BLOOD CHEMISTRY (4) H/O heart artery stent Code(s): Z95.5 - PRESENCE OF CORONARY ANGIOPLASTY IMPLANT AND GRAFT (5) HTN (hypertension) Code(s): I10 - ESSENTIAL (PRIMARY) HYPERTENSION Qualifiers: Hypertension type: essential hypertension Qualified Code(s): I10 - Essential (primary) hypertension (6) Renal insufficiency Code(s): N28.9 - DISORDER OF KIDNEY AND URETER, UNSPECIFIED Assessment/Plan 1. Acute on chronic LV systolic failure with severely reduced LVEF 2. CAD s/p CABG, s/p PCI/stent, angina 3. HTN 4. CKD 5. Demand ischemia PLAN: 1. Continue ASA 81 mg QD 2. Change Metoprolol to Carvedilol 3.125 mg BID 3. Continue Lisinopril for now but may consider Entresto therapy starting at 24/ 26 mg BID if renal function remains stable 4. Continue Spironolactone 25 mg QD 5. Diuretics (Lasix 40 mg PO QD) and monitor renal function and electrolytes 6. Await LifeVest according to primary cardiology team (although patient appears to be reluctant) Further plans are to follow Aditya Alvarez MD
[2019-04-06] MEDS: CARVEDILOL 3.125 MG TABLET (FP) PO SCH (22:06)
[2019-04-07] MEDS: HEPARIN NA (PORCINE) 5,000 UNITS/ML 1ML VIAL SQ SCH ×3 (06:42→21:34)
[2019-04-07 07:33] LABS: ALBUMIN 2.7 g/dl (3.4-5.0); BLOOD UREA NITROGEN 38.5 mg/dL (7-18); CALCIUM 8.3 mg/dL (8.5-10.1); CREATININE 1.6 mg/dL (0.55-1.3); POTASSIUM 4.3 mmol/L (3.5-5.1); TOT PROT 5.1 g/dl (6.4-8.2)
--- NOTE | 2019-04-07 10:02 | PN ---
Progress Note, Physician Chief Complaint: Events noted Not in distress Coverage for Dr. Jan Alba History of Present Illness: Patient was seen and examined. Awake and alert. Chart was reviewed Denies chest pain, SOB or palpitations Refuses LifeVest - Current Medication List Current Medications: Active Medications Aspirin (Asa -) 81 mg PO DAILY [facility] Last Admin: 04/06/19 09:37 Dose: 81 mg Carvedilol (Coreg -) 3.125 mg PO BID [facility] Last Admin: 04/06/19 22:06 Dose: 3.125 mg Furosemide (Lasix -) 40 mg PO DAILY [facility] Last Admin: 04/06/19 09:37 Dose: 40 mg Heparin Sodium (Porcine) (Heparin -) 5,000 unit SQ TID [facility] Last Admin: 04/07/19 06:42 Dose: 5,000 unit Lisinopril (Prinivil) 2.5 mg PO DAILY [facility] Last Admin: 04/06/19 09:38 Dose: 2.5 mg Potassium Phos/Sodium Phos (Phos-Nak Packet -) 1 packet PO DAILY [facility] Last Admin: 04/06/19 09:37 Dose: 1 packet Spironolactone (Aldactone -) 25 mg PO DAILY [facility] Last Admin: 04/06/19 09:37 Dose: 25 mg - Objective Vital Signs: Vital Signs Temperature 98.1 F 04/07/19 06:00 Pulse Rate 74 04/07/19 06:00 Respiratory Rate 20 04/07/19 06:00 Blood Pressure 103/59 L 04/07/19 06:00 O2 Sat by Pulse Oximetry (%) 97 04/06/19 21:00 Neck: Yes: Supple Cardiovascular: Yes: Regular Rate and Rhythm, Murmur (SM), S1, S2 Respiratory: Yes: CTA Bilaterally Gastrointestinal: Yes: Normal Bowel Sounds, Soft. No: Tenderness Edema: No Additional Findings/Remarks: - Review of Systems Constitutional: denies: Chills, Fever Cardiovascular: denies Palpitations, (+) Shortness of Breath. denies: Chest Pain Respiratory: denies Cough, (+) SOB. denies: Hemoptysis, Orthopnea, PND Gastrointestinal: denies: Abdominal Pain, Constipation, Diarrhea, Melena, Nausea , Rectal Bleeding, Vomiting Genitourinary: denies: Dysuria, Hematuria Musculoskeletal: denies Joint Pain. denies: Back Pain Neurological: denies: Dizziness, Headache, Seizure, Syncope Labs: CBC, BMP 04/05/19 06:02 04/07/19 05:28 Problem List - Problems (1) Hx of CABG Code(s): Z95.1 - PRESENCE OF AORTOCORONARY BYPASS GRAFT (2) Acute on chronic systolic CHF (congestive heart failure) Code(s): I50.23 - ACUTE ON CHRONIC SYSTOLIC (CONGESTIVE) HEART FAILURE (3) Elevated troponin I level Code(s): R79.89 - OTHER SPECIFIED ABNORMAL FINDINGS OF BLOOD CHEMISTRY (4) H/O heart artery stent Code(s): Z95.5 - PRESENCE OF CORONARY ANGIOPLASTY IMPLANT AND GRAFT (5) HTN (hypertension) Code(s): I10 - ESSENTIAL (PRIMARY) HYPERTENSION Qualifiers: Hypertension type: essential hypertension Qualified Code(s): I10 - Essential (primary) hypertension (6) Renal insufficiency Code(s): N28.9 - DISORDER OF KIDNEY AND URETER, UNSPECIFIED Assessment/Plan 1. Acute on chronic LV systolic failure with severely reduced LVEF 2. CAD s/p CABG, s/p PCI/stent, angina 3. HTN 4. CKD 5. Demand ischemia PLAN: 1. Continue ASA 81 mg QD 2. Continue Carvedilol 3.125 mg BID 3. Continue Lisinopril for now but may consider Entresto therapy starting at 24/ 26 mg BID if renal function remains stable 4. Continue Spironolactone 25 mg QD 5. Diuretics (Lasix 40 mg PO QD) and monitor renal function and electrolytes 6. Refuses LifeVest. Dr. Alba to discuss this with patient further Further plans are to follow Dr. Alba to resume care on Monday Aditya Alvarez MD
[2019-04-07] MEDS: SPIRONOLACTONE 25 MG TABLET (FP) PO SCH (10:06)
[2019-04-07] MEDS: ASPIRIN 81 MG CHEWABLE TABLETS PO SCH (10:06)
[2019-04-07] MEDS: NAPH,MB-DB/K PH,MBDB POWDER PACKET PO SCH (10:06)
[2019-04-07] MEDS: FUROSEMIDE 40 MG TABLET (FP) PO SCH (10:06)
[2019-04-07] MEDS: CARVEDILOL 3.125 MG TABLET (FP) PO SCH ×2 (10:06→21:34)
[2019-04-07] MEDS: LISINOPRIL 5 MG TABLET (FP) PO SCH (10:07)
--- NOTE | 2019-04-07 19:23 | PN ---
Progress Note (short form) - Note Progress Note: Subjective: no fever or chills. No SOB , no CP . No events over night Objective: Vital Signs: Last Vital Signs Temp Pulse Resp BP Pulse Ox 98.6 F 73 20 123/73 96 04/07/19 17:00 04/07/19 17:00 04/07/19 17:00 04/07/19 17:00 04/07/19 09:00 Laboratory Results - last 24 hr 04/07/19 04/07/19 05:28 15:10 Sodium 133 L Potassium 4.3 Chloride 96 L Carbon Dioxide 31 Anion Gap 5 L BUN 38.5 H Creatinine 1.6 H Est GFR (CKD-EPI)AfAm 44.86 Est GFR (CKD-EPI)NonAf 38.71 Random Glucose 86 Calcium 8.3 L Magnesium 1.9 Total Bilirubin 1.0 AST 54 H ALT 54 Alkaline Phosphatase 86 Total Protein 5.1 L Albumin 2.7 L Physical Exam: NAD CV: RRR Lungs: CTAB Ext: 1+ pitting edema on feet and ankles A/P 83 year old man with a history of HTN, CAD with stents, CHF, legal blindness who presented to the ED with leg swelling and SOB, he was diagnosed with acute systolic CHF. 1- Acute systolic CHF. improved 2- Demand ischemia 3- Possible CKD 4- HTN. 5- CAD, s/p stents. 6- Transaminitis. Plan: - tele reviewed. NO events - Cont po lasix - cont spironolactone - cont Lisinopril - cont torpol - Life vest is pending - cont Asa . - off plavix now . will not resume after dc - monitor LFTS. lipitor on hold. - heparin sq. Dc is pending life vest as patient is at high risk for life threatening arrhythmias Visit type - Emergency Visit Emergency Visit: Yes ED Registration Date: 04/01/19 Care time: The patient presented to the Emergency Department on the above date and was hospitalized for further evaluation of their emergent condition. - New Patient This patient is new to me today: No - Critical Care Critical Care patient: No
[2019-04-08 07:36] LABS: ALBUMIN 2.6 g/dl (3.4-5.0); BILIRUBIN,DIRECT 0.3 mg/dL (0.0-0.2); BILIRUBIN,TOTAL 0.7 mg/dL (0.2-1); TOT PROT 5.5 g/dl (6.4-8.2)
[2019-04-08] MEDS: FUROSEMIDE 40 MG TABLET (FP) PO SCH (10:27)
[2019-04-08] MEDS: CARVEDILOL 3.125 MG TABLET (FP) PO SCH ×2 (10:27→21:40)
[2019-04-08] MEDS: SPIRONOLACTONE 25 MG TABLET (FP) PO SCH (10:27)
[2019-04-08] MEDS: ASPIRIN 81 MG CHEWABLE TABLETS PO SCH (10:27)
[2019-04-08] MEDS: LISINOPRIL 5 MG TABLET (FP) PO SCH (10:27)
[2019-04-08] MEDS: NAPH,MB-DB/K PH,MBDB POWDER PACKET PO SCH (10:27)
--- NOTE | 2019-04-08 10:59 | PN ---
Progress Note, Physician History of Present Illness: 83 yr old man (kari Rodriguez; raised in [place]), with PMH legally blind, HTN, CABG, CAD s/p 2 stents (all cardiac work done at [facility], [facility] [address], per pt), systolic (severely reduced LVEF) CHF, BIBEMS for a week of bland taste when eating and concern regarding Covid-19. Denies f/c, cough, cp/sob, n/ v. Good appetite except bland taste when he eats. Examiner noticed edema of the legs - pt states he has had for 3 days. Pt was admitted at [facility] and discharged w/ Torsemide but has not been taking. Denies hx smoking or heavy drinking. No hx asthma. - Current Medication List Current Medications: Active Medications Aspirin (Asa -) 81 mg PO DAILY [facility] Last Admin: 04/08/19 10:27 Dose: 81 mg Carvedilol (Coreg -) 3.125 mg PO BID [facility] Last Admin: 04/08/19 10:27 Dose: 3.125 mg Furosemide (Lasix -) 40 mg PO DAILY [facility] Last Admin: 04/08/19 10:27 Dose: 40 mg Lisinopril (Prinivil) 2.5 mg PO DAILY [facility] Last Admin: 04/08/19 10:27 Dose: 2.5 mg Potassium Phos/Sodium Phos (Phos-Nak Packet -) 1 packet PO DAILY [facility] Last Admin: 04/08/19 10:27 Dose: 1 packet Spironolactone (Aldactone -) 25 mg PO DAILY [facility] Last Admin: 04/08/19 10:27 Dose: 25 mg - Objective Vital Signs: Vital Signs Temperature 98.4 F 04/08/19 06:00 Pulse Rate 66 04/08/19 06:00 Respiratory Rate 20 04/08/19 06:00 Blood Pressure 100/66 04/08/19 06:00 O2 Sat by Pulse Oximetry (%) 96 04/07/19 21:00 Eyes: Yes: WNL, Conjunctiva Clear, EOM Intact HENT: Yes: WNL, Atraumatic, Normocephalic Neck: Yes: WNL, Supple, Trachea Midline Cardiovascular: Yes: WNL, Regular Rate and Rhythm Respiratory: Yes: WNL, Regular, CTA Bilaterally Gastrointestinal: Yes: WNL, Normal Bowel Sounds Genitourinary: Yes: WNL Musculoskeletal: Yes: WNL Extremities: Yes: WNL Edema: No Integumentary: Yes: WNL Neurological: Yes: WNL, Alert, Oriented ...Motor Strength: WNL Psychiatric: Yes: WNL Labs: CBC, BMP 04/05/19 06:02 04/07/19 05:28 Assessment/Plan 1. Acute on chronic LV systolic failure with severely reduced LVEF 2. CAD s/p CABG, s/p PCI/stent, angina 3. HTN 4. CKD 5. Demand ischemia PLAN: 1. Continue ASA 81 mg QD 2. Continue Carvedilol 3.125 mg BID 3. Continue Lisinopril for now but may consider Entresto therapy starting at 24/ 26 mg BID if renal function remains stable 4. Continue Spironolactone 25 mg QD 5. Diuretics (Lasix 40 mg PO QD) and monitor renal function and electrolytes 6. Refuses LifeVest or AICD. UNDERSTANDS RISKS OF . May be discharged and f /u as the outpatient with his cardiologists Patient has his own Cardiologists at [facility] - does not remember the name, all revascularization was done at [facility]. refused to give the name of Saw Sharpener to the resident since she "did not trusts [facility].
--- NOTE | 2019-04-08 12:29 | PN ---
Teaching Attending Note Name of Resident: Gabino Hernandez ATTENDING PHYSICIAN STATEMENT I saw and evaluated the patient. I reviewed the resident's note and discussed the case with the resident. I agree with the resident's findings and plan as documented. SUBJECTIVE: no fever or chills . No SOB , no N/V no SOB . no events over night OBJECTIVE: NAD CV: RRR Lungs: CTAB Ext: 1+ pitting edema on feet and ankles A/P 83 year old man with a history of HTN, CAD with stents, CHF, legal blindness who presented to the ED with leg swelling and SOB, he was diagnosed with acute systolic CHF. 1- Acute systolic CHF. improved 2- Demand ischemia 3- Possible CKD 4- HTN. 5- CAD, s/p stents. 6- Transaminitis. Plan: - tele reviewed. NO events noted today - Cont po lasix - cont spironolactone - cont Lisinopril - cont Asa . - off plavix now . will not resume after dc - monitor LFTS. lipitor on hold. can be resumed as out pt , soon hopefully Patient refuses life vest. he understands the risk of fatal arrhythmias nad cardiac arrest. he believes in no aggressive interventions if it is his time to . His wishes are honored . He is capable of making decisions , and he understands his medical condition . Since were not able to confirm his meds, he was asked to throw out all his old meds and take only what's on the discharge list
--- NOTE | 2019-04-08 16:57 | DS ---
Physical Exam: SUBJECTIVE: Patient seen and examined at the bedside. Stated he is doing well. Denies acute complaints of cp, sob, abd pain, n/v/c/d, headaches, dizziness, lightheadedness, fever, chills, focal weakness, numbness, tingling. OBJECTIVE: Vital Signs Period Temp Pulse Resp BP Sys/Barber Pulse Ox Last 24 Hr 97.8 F-99.1 F 66-74 20-20 99-123/50-73 96-99 PHYSICAL EXAM GENERAL: The patient is awake, alert, and fully oriented, in no acute distress. EYES: Very poorly reactive pupils. White-out of lenses. ENT: Oropharynx clear without exudates, moist mucous membranes. LUNGS: Breath sounds equal, no crackles heard. No wheezes auscultated. HEART: Regular rate and rhythm, S1, S2 with noted systolic ejection murmur. ABDOMEN: Soft, nontender, nondistended, normoactive bowel sounds, no guarding, no rebound, no masses. Liz's negative. EXTREMITIES: 1+ pulses, warm, well-perfused, 1+ pitting edema noted on just above the ankles. PSYCH: Normal mood, normal affect. SKIN: Warm, dry, normal turgor. LABS Laboratory Results - last 24 hr 04/08/19 05:45 Total Bilirubin 0.7 Direct Bilirubin 0.3 H AST 70 H ALT 71 H Alkaline Phosphatase 95 Total Protein 5.5 L Albumin 2.6 L HOSPITAL COURSE: Dallas Toscano is a 83 year old male with a past medical history of PMH HTN, CAD s /p 2x stent placements, CHF, legal blindness admitted for acute CHF decompensation. Patient was treated with IV Lasix and improved. Echo at this facility as below. Previous records from [facility] noting Cath Report: LAD ostial 100% stenosis, circumflex patent stent in proximal and mid segments, RCA proximal 80% stenosis with RUIZ flow 3. Placed Márquez Drug Eluting Stent. Recommendations of asa 81mg indefinitely, clopidogrel 75mg for 6 months or longer as indicated. Statin indefinitely. Patient's was contacted and she refused to give information regarding the patient's primary care physician, medications, or pharmacy. At this facility medications were started atorvastatin 10mg daily, lisinopril 2.5mg daily, spironolactone 25mg daily, coreg 3.125mg bid. Was offered the options of LifeVest and ICD and the patient refused these options stating he does not want an invasive procedure or to wear the LifeVest. Was spoken to about the risks of not wearing the LifeVest including but not limited to sudden arrhythmias, syncope, heart failure, and/or . Was advised not to take any of his old medications and advised to only take the medications prescribed at this facility and to follow up with his PCP and craft demonstrator. Patient was advised to follow up with nephrology due to bilateral cortical cysts. Had elevated bilirubin and had RUQ U/S noting cholelithiasis, gallbladder wall thickening and pericholecystic fluid. F/u HIDA noting no cholecystitis or biliary obstruction. Noted moderate gallbladder distension at 2 hours suggesting gallbladder dyskinesis. Was advised to follow up with general surgery for these findings. Patient was spoken to about these findings. Was advised to follow up with PCP, cardiology, general surgery, nephrology and to start the medications listed above in addition to aspirin. Advised to stop Plavix as stents were greater than 1 year prior as per received records. Patient was in agreement with the plan and was discharged in stable medical condition. ECHO: The left ventricle is severely dilated. There is severe global hypokinesis of the left ventricle. Left ventricular systolic function is severely reduced. Ejection Fraction = 25%. The right ventricle is mildly dilated. The right ventricular systolic function is mildly reduced. The left atrium is mildly dilated. The right atrium is mildly dilated. There is moderate mitral annular calcification. There is moderate mitral valve thickening. There is mild to moderate mitral regurgitation. There is mild tricuspid regurgitation. Right ventricular systolic pressure is elevated at 42 mmhg. Assuming the RA pressure is 10 mmHg There is moderate to severe aortic valve thickening. Date of Admission:04/01/19 Date of Discharge: 04/08/19 Minutes to complete discharge: 35 Discharge Summary Problems reviewed: Yes Reason For Visit: ACUTE KIDNEY INJURY, CONGESTIVE HEART FAILURE Current Active Problems H/O heart artery stent (Chronic) HTN (hypertension) (Chronic) Hx of CABG (Chronic) Renal insufficiency (Chronic) Condition: Stable - Instructions Diet, Activity, Other Instructions: You were admitted for shortness of breath which was due to your heart failure. You were treated for your heart failure and started on medications to optimize your heart. You had an echocardiogram which showed poor function of your heart. You were seen by the craft demonstrator who recommended you have a LifeVest to prevent any arrhythmia events from your heart which was discussed with you and you refused the LifeVest. You were also encouraged to have a pacemaker placed which you had refused as well. You are encouraged to follow up with the craft demonstrator in the outpatient clinic. You had elevated levels of your liver enzymes for which you had an ultrasound which showed that you have gallbladder stones, thickening of your gallbladder, fluid around the gallbladder. You had another scan which did not show any obstruction in your gallbadder. You are encouraged to follow up with a sterile processing manager for these findings. MEDICATIONS DO NOT TAKE ANY OF YOUR OLD MEDICATIONS. ONLY TAKE THE MEDICATIONS PRESCRIBED TO YOU AT THIS HOSPITAL AND FOLLOW UP WITH YOUR PRIMARY CARE DOCTOR AND SALES ANALYTICS MANAGER. START to take aspirin 81mg daily. START to take lisinopril 2.5mg daily. START to take furosemide 40mg daily. START to take carvedilol 3.125mg twice a day. START to take spironolactone 25mg daily. Make sure to follow up with your doctors to optimize your medications. weigh yourself daily and take log to your craft demonstrator to adjust your medications REFERRALS Please follow up with your primary care doctor, within 1 week. If you do not have one you may follow up with the resident's clinic for which the information is provided. Please follow up with your craft demonstrator, within 1 week. If you do not have one or wish to switch cardiologists, you may follow up with Dr. Jan Alba. Please follow up with your fudger, within 1 week. If you do not have one or wish to switch nephrologists, you may follow up with Dr. Terry Levin. Please follow up with Dr. Her, within 1 week to evaluate your gall bladder stones. SPECIAL INSTRUCTIONS Make sure to only take the medications that were prescribed to you at this hospital , and follow up with your doctors to optimize your medication regimen. Follow up with repeat bloodwork at your primary care office for your liver enzymes in 1 week. If you have any further symptoms of shortness of breath, dizziness, lightheadedness, chest pain, fevers, falls, or any other general feelings of unwellness, please call 911 or go to your nearest emergency room. Referrals: [facility] [place] [Provider Group] - 1 Week Luis Her MD [Staff Physician] - 1 Week Jan Alba MD [Staff Physician] - 1 Week Terry Levin MD [Staff Physician] - 1 Week Disposition: HOME - Home Medications Comprehensive Discharge Medication List: Ambulatory Orders Aspirin [ASA -] 81 mg PO DAILY #30 tab.chew 04/08/19 Carvedilol [Coreg -] 3.125 mg PO BID #60 tablet 04/08/19 Furosemide [Lasix -] 40 mg PO DAILY #30 tablet 04/08/19 Lisinopril [Zestril] 2.5 mg PO DAILY #30 tablet 04/08/19 Spironolactone [Aldactone -] 25 mg PO DAILY #30 tablet 04/08/19 Problem List - Problems (1) H/O heart artery stent Code(s): Z95.5 - PRESENCE OF CORONARY ANGIOPLASTY IMPLANT AND GRAFT (2) HTN (hypertension) Code(s): I10 - ESSENTIAL (PRIMARY) HYPERTENSION Qualifiers: Hypertension type: essential hypertension Qualified Code(s): I10 - Essential (primary) hypertension (3) Hx of CABG Code(s): Z95.1 - PRESENCE OF AORTOCORONARY BYPASS GRAFT (4) Renal insufficiency Code(s): N28.9 - DISORDER OF KIDNEY AND URETER, UNSPECIFIED (5) Acute on chronic systolic CHF (congestive heart failure) Code(s): I50.23 - ACUTE ON CHRONIC SYSTOLIC (CONGESTIVE) HEART FAILURE (6) Elevated troponin I level Code(s): R79.89 - OTHER SPECIFIED ABNORMAL FINDINGS OF BLOOD CHEMISTRY This patient is new to me today: No Emergency Visit: Yes ED Registration Date: 04/01/19 Care time: The patient presented to the Emergency Department on the above date and was hospitalized for further evaluation of their emergent condition. Critical Care patient: No - Discharge Referral Referred to [facility] Med [facility] No
[2019-04-09] MEDS: CARVEDILOL 3.125 MG TABLET (FP) PO SCH (09:16)
[2019-04-09] MEDS: SPIRONOLACTONE 25 MG TABLET (FP) PO SCH (09:16)
[2019-04-09] MEDS: NAPH,MB-DB/K PH,MBDB POWDER PACKET PO SCH (09:16)
[2019-04-09] MEDS: ASPIRIN 81 MG CHEWABLE TABLETS PO SCH (09:16)
[2019-04-09] MEDS: FUROSEMIDE 40 MG TABLET (FP) PO SCH (09:16)
[2019-04-09] MEDS: LISINOPRIL 5 MG TABLET (FP) PO SCH (09:16)
[2019-04-09 09:35] VITALS: BP 118/62; PULSE 70; TEMP 98
--- NOTE | 2019-04-09 10:03 | PN ---
Progress Note, Physician Chief Complaint: Pt A&Ox3; sitting up at bedside; asymptomatic. P's legs are feeling "stonger",; he looks forward to going home and starting to walk 1/2 hours daily or more. History of Present Illness: 83 yr old man (akri Rodriguez; raised in [place]), with PMH legally blind, HTN, CABG, CAD s/p 2 stents (all cardiac work done at [facility], [address], per pt), systolic (severely reduced LVEF) CHF, BIBEMS for a week of bland taste when eating and concern regarding Covid-19. Denies f/c, cough, cp/sob, n/ v. Good appetite except bland taste when he eats. Examiner noticed edema of the legs - pt states he has had for 3 days. Pt was admitted at [facility] and discharged w/ Torsemide but has not been taking. Denies hx smoking or heavy drinking. No hx asthma. - Current Medication List Current Medications: Active Medications Aspirin (Asa -) 81 mg PO DAILY [facility] Last Admin: 04/09/19 09:16 Dose: 81 mg Carvedilol (Coreg -) 3.125 mg PO BID [facility] Last Admin: 04/09/19 09:16 Dose: 3.125 mg Furosemide (Lasix -) 40 mg PO DAILY [facility] Last Admin: 04/09/19 09:16 Dose: 40 mg Lisinopril (Prinivil) 2.5 mg PO DAILY [facility] Last Admin: 04/09/19 09:16 Dose: 2.5 mg Potassium Phos/Sodium Phos (Phos-Nak Packet -) 1 packet PO DAILY [facility] Last Admin: 04/09/19 09:16 Dose: 1 packet Spironolactone (Aldactone -) 25 mg PO DAILY [facility] Last Admin: 04/09/19 09:16 Dose: 25 mg - Objective Vital Signs: Vital Signs Temperature 98 F 04/09/19 09:00 Pulse Rate 70 04/09/19 09:00 Respiratory Rate 18 04/09/19 09:00 Blood Pressure 118/62 04/09/19 09:00 O2 Sat by Pulse Oximetry (%) 97 04/08/19 21:00 Constitutional: Yes: No Distress, Calm Eyes: Yes: Other (blind) HENT: Yes: WNL Neck: Yes: WNL Cardiovascular: Yes: S1, S2 Respiratory: Yes: Regular Gastrointestinal: Yes: Soft ...Rectal Exam: Yes: Deferred Genitourinary: No: Anuria Musculoskeletal: Yes: Muscle Weakness Extremities: Yes: WNL Edema: No Peripheral Pulses WNL: Yes Integumentary: Yes: WNL Neurological: Yes: Alert, Oriented Psychiatric: Yes: WNL Labs: CBC, BMP 04/05/19 06:02 04/07/19 05:28 Problem List - Problems (1) Acute on chronic systolic CHF (congestive heart failure) Assessment/Plan: s/p 2 coronary stents 2018 at [facility]. On ASA; clopoidogrel discontinued. On metoprolol, lisinopril, and spironolactone; furosemide prn. F/u BUN/Cr, electrolytes, daily weight, Is and Os. As noted, pt does not want either the Life Vest or consideration for permanent ICD.He will f/u with his lithopone mill worker at ?[facility](whose name he still doest not remember). Code(s): I50.23 - ACUTE ON CHRONIC SYSTOLIC (CONGESTIVE) HEART FAILURE (2) HTN (hypertension) Code(s): I10 - ESSENTIAL (PRIMARY) HYPERTENSION Qualifiers: Hypertension type: essential hypertension Qualified Code(s): I10 - Essential (primary) hypertension (3) Renal insufficiency Assessment/Plan: CXR: improving; no signs of acute failure. John decrease furosemide dose. Code(s): N28.9 - DISORDER OF KIDNEY AND URETER, UNSPECIFIED (4) Elevated troponin I level Code(s): R79.89 - OTHER SPECIFIED ABNORMAL FINDINGS OF BLOOD CHEMISTRY (5) H/O heart artery stent Code(s): Z95.5 - PRESENCE OF CORONARY ANGIOPLASTY IMPLANT AND GRAFT
--- NOTE | 2019-04-09 14:45 | PN ---
Physical Exam: SUBJECTIVE: Patient seen and examined at the bedside. Did not leave yesterday due to inability to reach to greet the patient upon discharge. reached today and stated that he will be greeted and the will assist with care upon arrival. Patient stated that he is feeling well and had no acute complaints. OBJECTIVE: Vital Signs Period Temp Pulse Resp BP Sys/Barber Pulse Ox Last 24 Hr 98 F-99.7 F 68-73 18-20 83-120/44-64 97-97 GENERAL: The patient is awake, alert, and fully oriented, in no acute distress. EYES: Very poorly reactive pupils. White-out of lenses. ENT: Oropharynx clear without exudates, moist mucous membranes. LUNGS: Breath sounds equal, no crackles heard. No wheezes auscultated. HEART: Regular rate and rhythm, S1, S2 with noted systolic ejection murmur. ABDOMEN: Soft, nontender, nondistended, normoactive bowel sounds, no guarding, no rebound, no masses. Liz's negative. EXTREMITIES: 1+ pulses, warm, well-perfused, 1+ pitting edema noted on just above the ankles. PSYCH: Normal mood, normal affect. SKIN: Warm, dry, normal turgor. ASSESSMENT/PLAN: No change from discharge plan apart from sending patient's medications to his pharmacy [facility]. Refer to discharge summary for further information. Problem List - Problems (1) H/O heart artery stent Code(s): Z95.5 - PRESENCE OF CORONARY ANGIOPLASTY IMPLANT AND GRAFT (2) HTN (hypertension) Code(s): I10 - ESSENTIAL (PRIMARY) HYPERTENSION Qualifiers: Hypertension type: essential hypertension Qualified Code(s): I10 - Essential (primary) hypertension (3) Hx of CABG Code(s): Z95.1 - PRESENCE OF AORTOCORONARY BYPASS GRAFT (4) Renal insufficiency Code(s): N28.9 - DISORDER OF KIDNEY AND URETER, UNSPECIFIED (5) Acute on chronic systolic CHF (congestive heart failure) Code(s): I50.23 - ACUTE ON CHRONIC SYSTOLIC (CONGESTIVE) HEART FAILURE (6) Elevated troponin I level Code(s): R79.89 - OTHER SPECIFIED ABNORMAL FINDINGS OF BLOOD CHEMISTRY Visit type - Emergency Visit Emergency Visit: Yes ED Registration Date: 04/01/19 Care time: The patient presented to the Emergency Department on the above date and was hospitalized for further evaluation of their emergent condition. - New Patient This patient is new to me today: No - Critical Care Critical Care patient: No
--- NOTE | 2019-04-09 18:24 | HOSP ---
Subjective - Review of Symptoms Events since last encounter: patient was discharged yesterday but did not leave due to not being able to contact . this am , sw spoke toher and she will be receiving patient . VNS was arranged. he has no complaints today and his lungs are clear on exam. He has minimal edema on ankles and feet . No erythema . dc plan did not change. Physical Examination Vital Signs: Labs: CBC, BMP 04/05/19 06:02 04/07/19 05:28
[2019-04-10] MEDS ORDERED: FUROSEMIDE 40 MG TABLET (FP) PO SCH (10:00)
== END 2019-04-09 10:54 | disposition home or self-care (01) | DRG 291 ==
LOC: JER 01:08 → JERBED 03:57 → J4W 12:24
PROVIDERS: ADMIT Internal Medicine; ATTEND Internal Medicine
DX: I13.0 Hypertensive heart and chronic kidney disease with heart failure and stage 1 through stage 4 chronic kidney disease, or unspecified chronic kidney disease (principal); I50.23 Acute on chronic systolic (congestive) heart failure; I24.8 Other forms of acute ischemic heart disease; N17.9 Acute kidney failure, unspecified; N18.4 Chronic kidney disease, stage 4 (severe); R18.8 Other ascites; Q61.02 Congenital multiple renal cysts; R64 Cachexia; Z68.1 Body mass index [BMI] 19.9 or less, adult; K80.20 Calculus of gallbladder without cholecystitis without obstruction; Z95.1 Presence of aortocoronary bypass graft; Z95.5 Presence of coronary angioplasty implant and graft; R74.0 Nonspecific elevation of levels of transaminase and lactic acid dehydrogenase [LDH]; I25.119 Atherosclerotic heart disease of native coronary artery with unspecified angina pectoris; H54.8 Legal blindness, as defined in USA; E80.6 Other disorders of bilirubin metabolism; E87.6 Hypokalemia; E83.42 Hypomagnesemia
CPT/HCPCS: 36415; 71045-TC-FY; 76700-TC; 78226-TC; 80048; 80051; 80053; 80061; 80076; 82248; 82436; 82550; 82553; 82565; 83721; 83735; 83880; 84100; 84133; 84300; 84443; 84484; 85025; 93005; 93010; 93306-TC; 97116-GP; 97161-GP; 99285-25; A9537; J1644